=== PATIENT | female | born 1985 | race American Indian/Alaskan Native ===

== ENCOUNTER 2017-02-16 18:22 | Emergency (ER) | payer OTHER, BC ==
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
[2017-02-17] MEDS ORDERED: MOTRIN PO ONE (01:36)
[2017-02-17] MEDS ORDERED: TYLENOL PO ONE (01:36)
[2017-02-17 02:25] VITALS: BP 149/99
== END 2017-02-17 02:25 | disposition home or self-care (01) ==
LOC: ED 18:22
DX: M54.5 Low back pain (principal); M25.512 Pain in left shoulder; V49.49XA Driver injured in collision with other motor vehicles in traffic accident, initial encounter; Y93.89 Activity, other specified; Y92.9 Unspecified place or not applicable; Y99.9 Unspecified external cause status
CPT/HCPCS: 72100

== ENCOUNTER 2018-02-16 07:49 | Outpatient (CLI) | payer BC ==
--- NOTE | 2018-02-16 10:17 | Nuclear Medicine Report ---
HEPATOBILIARY SCAN: History: Right upper quadrant pain. Findings: No recent comparison. Correlation is made with MR abdomen dated 11/19/[address] abdomen pelvis dated 11/17/17. Following the injection of the radionuclide, serial scanning was obtained over the right upper quadrant. Initial imaging of the liver demonstrates a relatively normal activity pattern. There is progressive concentration of the radionucleotide in the central biliary ducts, common bile duct and small bowel loops. No gallbladder activity is identified out to 90 minutes. IMPRESSION: Nonvisualization of the gallbladder on HIDA scan. Acute cholecystitis cannot be excluded. Please correlate with the patient's clinical presentation.
== END 2018-02-16 07:50 | disposition home or self-care (01) ==
LOC: NM 07:49
PROVIDERS: ATTEND Surgery
DX: R10.11 Right upper quadrant pain (principal); E66.9 Obesity, unspecified; I10 Essential (primary) hypertension
CPT/HCPCS: 78226; A9537

== ENCOUNTER 2018-03-24 11:38 | Day surgery (SDC) | payer BC ==
[~2018-03-24 11:38] MED LIST: ANCEF/STERILE WATER 2 GM/20 ML IV NR; MARCAINE 0.25% INFILTRATI ONE
[2018-03-24] MEDS ORDERED: ZOFRAN IV PRN (12:11)
[2018-03-24] MEDS ORDERED: TORADOL IV PRN (12:11)
[2018-03-24] MEDS ORDERED: DEMEROL IV PRN (12:11)
[2018-03-24] MEDS ORDERED: MARCAINE-EPI 0.25%-1:200,000 INFILTRATI ONE (12:30)
[2018-03-24] MEDS ORDERED: NACL 0.9% 250ML 250 ML ONE (12:30)
[2018-03-24] MEDS ORDERED: VERSED IV NR (13:00)
[2018-03-24] MEDS ORDERED: LACTATED RINGERS 1,000 ML IV SCH ×2 (13:00→14:00)
--- NOTE | 2018-03-24 13:19 | Anesthesia Consultation ---
Anesthesia Consult and Med Hx Date of service: 03/24/18 - Airway Anesthetic Teeth Evaluation: Good ROM Head & Neck: Adequate Mental/Hyoid Distance: Adequate Mallampati Class: Class II Intubation Access Assessment: Probably Good - Pulmonary Exam CTA: Yes - Cardiac Exam Cardiac Exam: RRR - Pre-Operative Health Status ASA Pre-Surgery Classification: ASA2 Proposed Anesthetic Plan: General - Cardiovascular System Hx Hypertension: Yes (2 YEARS) - Central Nervous System Hx Psychiatric Problems: No - Other Systems Hx Alcohol Use: No Hx Substance Use: No Hx Cancer: No Hx Obesity: Yes
--- NOTE | 2018-03-24 13:19 | Anesthesia Day of Surgery ---
Anesthesia Day of Surgery - Day of Surgery Patient Examined: Yes Patient H&P Reviewed: Yes Patient is NPO: Yes
[2018-03-24] MEDS ORDERED: SUBLIMAZE ONE (14:14)
[2018-03-24] MEDS ORDERED: DIPRIVAN 10 MG/ML IV ONE (14:14)
[2018-03-24] MEDS ORDERED: DECADRON ONE (14:32)
[2018-03-24] MEDS ORDERED: XYLOCAINE MPF 2% ONE (14:32)
[2018-03-24] MEDS ORDERED: ZEMURON IV ONE (14:33)
[2018-03-24] MEDS ORDERED: ZOFRAN ONE (14:39)
[2018-03-24] MEDS ORDERED: OMNIPAQUE 300 MG/50 ML (CATH LAB) IV ONE (14:55)
[2018-03-24] MEDS ORDERED: MARCAINE 0.25% INFILTRATI ONE (15:13)
--- NOTE | 2018-03-24 15:16 | Operative Report ---
Operative Report Operative Report: Date of procedure: 03/24/2018 Pre-operative diagnosis: Biliary pancreatitis Post-operative diagnosis: Same Procedure name(s): Laparoscopic cholecystectomy Surgeon: Cheryl Salmeron MD Route Clerk: Samuel Grover M.D. Anesthesia: General EBL: Minimal Complications: None Instrument Count: correct Indications: This is a 32-year-old female with a history of abdominal pain found to have biliary pancreatitis she is offered the above-named procedures possible diagnostic and therapeutic modality. The risks and benefits discussed until all questions were answered. She was subsequently brought to the OR. Findings: Tapering of the proximal biliary tree. Questionable choledocholithiasis. Procedure: We reviewed the informed consent. We placed the patient supine upon the table. After adequate anesthesia was reached, the patient was prepped and draped in usual sterile fashion. A 5 mm incision was made the level of umbilicus and a Veress needle was placed at this position. The abdomen was then insufflated to 15 mmHg and a 5 mm trocar was placed through the umbilical incision. We inserted the camera at this time. Under direct vision and after infiltration of local anesthetic an 11 mm port was placed in the epigastric location. This was followed by placement of two five mm ports in the right upper quadrant. We identified the gallbladder and the fundus was grasped. This was retracted superiorly. We then grasped the infundibulum and retracted it laterally. At this time we dissected free the cystic duct infundibular junction until the triangle of Calot was clearly identified. Placed 2 clips distally on the cystic duct. And partially transected the duct at this point a 5 Macedonian pediatric catheter was in place with the lumen of the proximal portion of the cystic duct. Under fluoroscopic guidance injected radiopaque dye within the lumen and we were clearly able to see the biliary tree. The findings of which are noted above. We then placed 3 clips proximally the cystic duct and completely transected it. We placed 2 clips proximally on the cystic artery. We transected the cystic artery using electrocautery. We then dissected the gallbladder free from its fossa using electrocautery. This was placed in Endo Catch bag and removed the abdomen to be sent to pathology for further evaluation. We assured hemostasis at this time. We then evacuated the insufflation. We removed all ports and closed all port sites using a 4-0 Monocryl in a subcuticular fashion. The wounds were bandaged sterilely. The patient tolerated procedure well. They were taken to PACU in no apparent distress after extubation.
--- NOTE | 2018-03-24 15:18 | Short Stay Summary ---
Short Stay Documentation Date of service: 03/24/18 - History H&P: obtained from office - Allergies and Medications Current Medications: Allergies No Known Allergies Allergy (Verified 03/17/18 12:40) Home Medications Medication Instructions Recorded Confirmed Last Taken Type Losartan/Hydrochlorothiazide 1 tab PO DAILY 03/17/18 03/17/18 Unknown History [Losartan-Hctz 50-12.5 mg Tab] Norgestrel-Ethinyl Estradiol 1 each PO DAILY 03/17/18 03/17/18 Unknown History [Qhp-Kycxeeib-33 Tablet] Active Medications Cefazolin Sodium (Ancef/Sterile Water 2 Gm/20 Ml) 2 gm IV PREOP NR Stop: 03/24/18 23:59 Hydromorphone HCl (Dilaudid) 0.5 mg IV Q10MIN PRN PRN Reason: Pain , Severe (7-10) Stop: 03/24/18 20:00 Lactated Ringer's (Lactated Ringers) 1,000 mls @ 100 mls/hr IV DIRECT YUNIER Last Admin: 03/24/18 13:19 Dose: 100 mls/hr Ketorolac Tromethamine (Toradol) 30 mg IV ONCE PRN PRN Reason: Pain, Moderate (4-6) Stop: 03/24/18 20:00 Meperidine HCl (Demerol) 25 mg IV ONCE PRN PRN Reason: Shivering Stop: 03/24/18 20:00 Midazolam HCl (Versed) 2 mg IV PREOP NR Stop: 03/24/18 23:59 Last Admin: 03/24/18 13:21 Dose: 2 mg Ondansetron HCl (Zofran) 4 mg IV ONCE PRN PRN Reason: Nausea And Vomiting Stop: 03/24/18 20:00 - Brief post op/procedure progress note Pre-op diagnosis: see op note Procedure: See op note Anesthesia: GETA - Disposition Condition at discharge: Stable Disposition: DC-01 TO HOME OR SELFCARE Short Stay Discharge Plan Activity: advance as tolerated Diet: low fat Follow up with: LEVI MARIE MD [Primary Care Provider] - 7 Days THANIA LEYVA MD [Staff Physician] - 7 Days Prescriptions: Ondansetron [Zofran TAB] 4 mg PO Q8HR PRN #20 tablet PRN Reason: Nausea oxyCODONE /ACETAMINOPHEN [Percocet 5/325] 1 tab PO Q6HR PRN #30 tablet PRN Reason: Pain
[2018-03-24] MEDS ORDERED: NEO SYNEPHRINE ONE (15:26)
[2018-03-24] MEDS ORDERED: ROBINUL ONE (15:26)
[2018-03-24] MEDS: DILAUDID IV PRN ×3 (15:45→16:10)
--- NOTE | 2018-03-24 17:05 | Post Anesthesia Evaluation ---
- Post Anesthesia Evaluation Patient Participated: Yes Airway Patent: Yes Stable Respiratory Function: Yes Nausea/Vomiting: Yes (mild, resolved with IV antiemetics) Temp > 96.8F: Yes Pain Manageable: Yes Adequeate Hydration: Yes Anesthesia Complications: No
[2018-03-24 20:59] VITALS: BP 112/46
--- NOTE | 2018-03-25 08:07 | Fluoroscopy Report ---
FLUOROSCOPY CHOLANGIOGRAM OPERATIVE History: Pancreatitis without necrosis Findings: Fluoroscopy was provided radiology during intraoperative cholangiogram by the surgeon. 3 fluoroscopic images were captured which demonstrates contrast agent within the common bile duct in the descending duodenum. No filling defect consistent with choledocholithiasis is identified. Cholecystectomy changes are noted. Please correlate with the procedural report as needed.
== END 2018-03-24 17:50 | disposition home or self-care (01) ==
LOC: OR 11:38
PROVIDERS: ATTEND Surgery
DX: K81.9 Cholecystitis, unspecified (principal); K85.10 Biliary acute pancreatitis without necrosis or infection; I10 Essential (primary) hypertension; E66.9 Obesity, unspecified; Z68.41 Body mass index [BMI] 40.0-44.9, adult; Z79.899 Other long term (current) drug therapy; Z98.891 History of uterine scar from previous surgery; Z98.890 Other specified postprocedural states; Z80.1 Family history of malignant neoplasm of trachea, bronchus and lung
CPT/HCPCS: 47562; 74300; 81025; 88304; J0690; J1100; J1170; J1885; J2250; J2370; J2405; J2704; J3010; J7050; J7120; Q9967

== ENCOUNTER 2019-11-17 08:50 | Inpatient (IN) | payer BC ==
[2019-11-17 09:32] LABS: Hematocrit 20.8 % (30.3-42.9); Hemoglobin 6.9 gm/dl (10.1-14.3); Mean Corpuscular HGB Conc 33 % (30-34); Mean Corpuscular Volume 101 fl (79-97); Platelet Count 429 K/mm3 (140-440); Red Blood Count 2.06 M/mm3 (3.65-5.03)
[2019-11-17 09:36] LABS: Red Cell Distribution Width 28.6 % (13.2-15.2)
[2019-11-17] MEDS ORDERED: SODIUM CHLORIDE 0.9% 1000 ML 1,000 ML IV ONE (09:49)
[2019-11-17] MEDS ORDERED: CEFEPIME/NS 1 GM/100 ML 1 GM/100 ML BAG IV ONE (09:49)
[2019-11-17] MEDS ORDERED: SODIUM CHLORIDE 0.9% 500 ML 500 ML IV ONE (09:50)
[2019-11-17 09:55] LABS: Alanine Aminotransferase 328 units/L (7-56); BUN/Creatinine Ratio 23; Blood Urea Nitrogen 16 mg/dL (7-17); Calcium 9.3 mg/dL (8.4-10.2); Hemolysis Index 0
[2019-11-17] MEDS ORDERED: MORPHINE 2 MG/1 ML INJ IV ONE ×2 (09:57)
[2019-11-17] MEDS ORDERED: PANTOPRAZOLE 40 MG INJ IV ONE ×2 (09:57→09:58)
[2019-11-17] MEDS ORDERED: ONDANSETRON 4 MG/2 ML INJ IV ONE ×2 (09:57)
--- NOTE | 2019-11-17 10:11 | XRay Report ---
CHEST 1 VIEW 11/17/2019 9:47 AM INDICATION / CLINICAL INFORMATION: Difficulty breathing. COMPARISON: 2 views of the chest from 09/06/2019. FINDINGS: SUPPORT DEVICES: None. HEART / MEDIASTINUM: No significant abnormality. LUNGS / PLEURA: The lungs are clear with reduced volumes. No significant pleural effusion. No pneumot horax. ADDITIONAL FINDINGS: No significant additional findings. IMPRESSION: 1. No acute abnormality of the chest. Signer Name: Alberto Altamirano MD Signed: 11/17/2019 10:07 AM Workstation Name: [email or web address]
[2019-11-17 10:44] LABS: Partial Thromboplastin Time 20.1 Sec. (24.2-36.6)
[2019-11-17] MEDS ORDERED: MAGNESIUM SULFATE 2 GM/50 ML BAG IV ONE ×2 (10:47→13:00)
[2019-11-17] MEDS ORDERED: POTASSIUM CHLORIDE ER 20 MEQ TAB PO ONE (10:47)
--- NOTE | 2019-11-17 10:49 | Emergency Department Report ---
ED Abdominal Pain HPI - General Chief Complaint: Abdominal Pain Stated Complaint: ABD PAIN Time Seen by Provider: 11/17/19 09:43 Source: patient Mode of arrival: Wheelchair Limitations: No Limitations - History of Present Illness Initial Comments: This is a 34-year-old female who was due to have an MRI of the abdomen without contrast as an outpatient today. Instead she decided to check into the emergency department. She tells me that she has been feeling very weak and fatigued for the last 3 to 4 days. She complains of discomfort in the right upper quadrant of her abdomen. She denies fever or chills. She has had nausea and vomiting. She is unable to tolerate p.o. She denies any signs of melena or hematemesis. She states that she has had a prior transfusion but no history of GI bleeding. She is a poor historian but states that she has a stent which I think is a biliary stent. She has been admitted to this hospital and the [facility] system several times. Review of her previous medical record is indicative of sphincterotomy for biliary obstruction here in August. It does not look like she had a stent when she was discharged. I think that that was subsequently placed at another facility. The patient was seen by her GI doctor in the their office just a few days ago. Last Discharge Summary 09/15 Hospitalization Condition: Stable Hospital course: Patient is a 32-year-old AA woman with a history of hypertension, c holecystectomy, after she had presented in 2018 for symptomatic cholecystitis and pancreatitis who presented to [facility] ED with abdominal pains. In ED she was found to have acute pancreatitis with liver lesions and intrahepatic biliary dilatation. MRCP: IMPRESSION: Prominent common bile duct although no obstructing lesion is seen. This probably represents normal post cholecystectomy dilatation. M oderate to severe acute pancreatitis is suspected with increasing ascites and new bilateral pleural effusions. s/p ERCP yesterday (09/07/19) that showed: 1. Normal external ampulla 2. Clips in RUQ 3. PD cannulated with 0.025 guidewire/fusiontome precut sphincterotomy 4. 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- sphincterotomy extended to medium size- cholangiogram showed no stones or mass Discharge Diagnoses: Recurrent acute pancreatitis: treated with bowel rest, pain medication and IVFs Acute hypoxic respiratory failure, poa on 4 Liters on O2 due to bilateral pleural effusion; stop IVF and treat with IV lasix Bilateral Pleural Effusion from pancreatitis most likely: stopped IVFs and given lasix SIRS with organ dysfunction secondary to acute pancreatitis Choledocholithaisis s/p ERCP with sphincterotomy Acute abdominal ascites Morbid obesity, bmi 43.4: 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 full code DVT ppx Disposition: DC-[id number] TO HOME OR SELFCARE Time spent for discharge: 35 minutes 09/15 GI consult Assessment and Plan (1) Acute pancreatitis Current Visit: No Status: Acute Plan to address problem: -afebrile -WBC 15.3 -H/H WNL -acute hepatitis panel negative -lipase and LFTs trending down -triglyceride level WNL -abd CT-acute pancreatitis and liver hemagiomas -abd U/S-extrahepatic common duct dilated, along with pancreatitis and liver hemangiomas -MRCP-prominent CBD but no obstructing lesion (s/p CCY), moderate to severe acute pancreatitis, and liver hemangiomas unchanged -etiology-Recurrent acute pancreatitis with elevated LFTs argue for ampullary stenosis/sphincter of Oddi dysfunction. -s/p ERCP yesterday (09/07/19) that showed: 1. Normal external ampulla 2. Clips in RUQ 3. PD cannulated with 0.025 guidewire/fusiontome - precut sphincterotomy 4. 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 No N/V. Tolerating liquids. -advance diet -avoid NSAIDs x 3 days -continue PPI -continue supportive care -patient okay to be to d/c per GI standpoint with f/u in clinic in ~2 weeks -will sign off, please call if needed MD Complaint: abdominal pain -: Gradual, days(s) Location: RUQ Radiation: back (Some back pain) Migration to: no migration Severity scale (0 -10): 8 Quality: aching Consistency: intermittent Improves With: nothing Worsens With: nothing Context: other (GI history as above) Associated Symptoms: nausea, vomiting. denies: diarrhea, fever Treatments Prior to Arrival: other - Related Data Home Medications Medication Instructions Recorded Confirmed Last Taken Norgestrel-Ethinyl Estradiol 1 each PO DAILY 03/17/18 09/03/19 Unknown [[id number] Tablet] Previous Rx's Medication Instructions Recorded Last Taken Type Acetaminophen [Acetaminophen TAB] 325 mg PO Q4H PRN #15 tablet 09/08/19 Unknown Rx Losartan [Cozaar] 50 mg PO QDAY #30 tablet 09/08/19 Unknown Rx Pantoprazole [Protonix TAB] 40 mg PO QDAY #30 tablet 09/08/19 Unknown Rx oxyCODONE /ACETAMINOPHEN [Percocet 1 tab PO Q6HR PRN #30 tablet 09/08/19 Unknown Rx 5/325 mg] Allergies Allergy/AdvReac Type Severity Reaction Status Date / Time No Known Allergies Allergy Verified 03/17/18 12:40 ED Review of Systems ROS: Stated complaint: ABD PAIN Other details as noted in HPI Constitutional: denies: chills, fever Eyes: denies: eye pain, vision change ENT: denies: ear pain, throat pain Respiratory: denies: cough, shortness of breath Cardiovascular: denies: chest pain, palpitations Endocrine: no symptoms reported Gastrointestinal: abdominal pain, nausea, vomiting. denies: diarrhea Genitourinary: denies: urgency, dysuria, discharge Musculoskeletal: back pain (Occasional). denies: joint swelling, arthralgia Skin: denies: rash, lesions Neurological: denies: headache, weakness Psychiatric: denies: anxiety, depression Hematological/Lymphatic: denies: easy bleeding, easy bruising ED Past Medical Hx - Past Medical History Previous Medical History?: Yes Hx Hypertension: Yes (2 YEARS) Hx Heart Attack/AMI: No Hx Diabetes: Yes Hx Liver Disease: Yes (transaminitis, acute pancreatitis) Hx Renal Disease: No Hx Sickle Cell Disease: No Hx Seizures: No Hx Asthma: No Hx COPD: No Hx HIV: No Additional medical history: Anemia - Surgical History Past Surgical History?: Yes Hx Pacemaker: No Hx Internal Defibrillator: No Hx Cholecystectomy: Yes Additional Surgical History: c section x1. ERCP - Social History Smoking Status: Never Smoker Substance Use Type: None - Medications Home Medications: Home Medications Medication Instructions Recorded Confirmed Last Taken Type Norgestrel-Ethinyl Estradiol 1 each PO DAILY 03/17/18 09/03/19 Unknown History [[id number]-[id number]-28 Tablet] Acetaminophen [Acetaminophen TAB] 325 mg PO Q4H PRN #15 tablet 09/08/19 Unknown Rx Losartan [Cozaar] 50 mg PO QDAY #30 tablet 09/08/19 Unknown Rx Pantoprazole [Protonix TAB] 40 mg PO QDAY #30 tablet 09/08/19 Unknown Rx oxyCODONE /ACETAMINOPHEN [Percocet 1 tab PO Q6HR PRN #30 tablet 09/08/19 Unknown Rx 5/325 mg] ED Physical Exam - General Limitations: No Limitations General appearance: alert, in no apparent distress - Head Head exam: Present: atraumatic, normocephalic - Eye Eye exam: Present: normal appearance. Absent: scleral icterus - ENT ENT exam: Present: mucous membranes moist - Neck Neck exam: Present: normal inspection - Respiratory Respiratory exam: Present: normal lung sounds bilaterally. Absent: respiratory distress - Cardiovascular Cardiovascular Exam: Present: regular rate, normal rhythm. Absent: systolic murmur, diastolic murmur, rubs, gallop - GI/Abdominal GI/Abdominal exam: Present: soft, distended (Mildly), tenderness (Right upper quadrant), normal bowel sounds. Absent: guarding, rebound, rigid, organomegaly, mass, bruit, pulsatile mass, hernia - Extremities Exam Extremities exam: Present: normal inspection - Back Exam Back exam: Present: normal inspection - Neurological Exam Neurological exam: Present: alert, oriented X3, CN II-XII intact. Absent: motor sensory deficit - Psychiatric Psychiatric exam: Present: normal affect, normal mood - Skin Skin exam: Present: warm, dry, intact, normal color. Absent: rash ED Course Vital Signs 11/17/19 11/17/19 11/17/19 08:58 09:33 09:46 Temperature 99.2 F 99.9 F H Pulse Rate 130 H 114 H 105 H Respiratory 20 18 14 Rate Blood Pressure 125/64 115/50 Blood Pressure 126/82 [Right] O2 Sat by Pulse 100 100 100 Oximetry 11/17/19 11/17/19 11/17/19 09:59 10:00 10:19 Temperature Pulse Rate 106 H Respiratory 18 17 18 Rate Blood Pressure 120/59 Blood Pressure [Right] O2 Sat by Pulse 100 Oximetry 11/17/19 11/17/19 10:30 11:16 Temperature Pulse Rate 95 H 90 Respiratory 15 15 Rate Blood Pressure 106/46 111/57 Blood Pressure [Right] O2 Sat by Pulse 98 100 Oximetry - Reevaluation(s) Reevaluation #1: Patient given cefepime, fluids, unit of blood. Spoke to GI who are consulted. Recommended proceed with CT examination and they will see. Discussed with hospitalist and admit to their service. 11/17/19 11:24 ED Medical Decision Making - Lab Data Result diagrams: 11/17/19 09:12 11/17/19 09:12 Laboratory Results - last 24 hr 11/17/19 11/17/19 11/17/19 09:12 09:12 09:12 WBC 10.6 RBC 2.06 L Hgb 6.9 L Hct 20.8 L MCV 101 H MCH 34 H MCHC 33 RDW 28.6 H Plt Count 429 PT INR APTT Sodium 140 Potassium 3.1 L Chloride 97.8 L Carbon Dioxide 20 L Anion Gap 25 BUN 16 Creatinine 0.7 Estimated GFR > 60 BUN/Creatinine Ratio 23 Glucose 205 H Lactic Acid Calcium 9.3 Magnesium Total Bilirubin 7.10 H AST 202 H ALT 328 H Alkaline Phosphatase 215 H Ammonia Troponin T NT-Pro-B Natriuret Pep Total Protein 7.8 Albumin 4.0 Albumin/Globulin Ratio 1.1 Lipase 19 HCG, Qual Negative 11/17/19 11/17/19 11/17/19 09:45 09:45 09:45 WBC RBC Hgb Hct MCV MCH MCHC RDW Plt Count PT 13.3 INR 1.00 APTT 20.1 L Sodium Potassium Chloride Carbon Dioxide Anion Gap BUN Creatinine Estimated GFR BUN/Creatinine Ratio Glucose Lactic Acid Calcium Magnesium 1.10 L Total Bilirubin AST ALT Alkaline Phosphatase Ammonia 14.0 L Troponin T < 0.010 NT-Pro-B Natriuret Pep 64.99 Total Protein Albumin Albumin/Globulin Ratio Lipase HCG, Qual 11/17/19 09:48 WBC RBC Hgb Hct MCV MCH MCHC RDW Plt Count PT INR APTT Sodium Potassium Chloride Carbon Dioxide Anion Gap BUN Creatinine Estimated GFR BUN/Creatinine Ratio Glucose Lactic Acid 1.80 Calcium Magnesium Total Bilirubin AST ALT Alkaline Phosphatase Ammonia Troponin T NT-Pro-B Natriuret Pep Total Protein Albumin Albumin/Globulin Ratio Lipase HCG, Qual - EKG Data -: EKG Interpreted by Sd EKG shows normal: sinus rhythm Rate: tachycardia - EKG Data Interpretation: nonspecific ST-T wave elida - Radiology Data Radiology results: pending (CT is pending), report reviewed (Chest x-ray no acute process) Critical care attestation.: If time is entered above; I have spent that time in minutes in the direct care of this critically ill patient, excluding procedure time. ED Disposition Clinical Impression: Biliary obstruction, Right upper quadrant pain Anemia Qualifiers: Anemia type: unspecified type Qualified Code(s): D64.9 - Anemia, unspecified Disposition: OP ADMIT IP TO THIS HOSP Is pt being admited?: Yes Does the pt Need Aspirin: No Condition: Stable Instructions: Abdominal Pain (ED) Referrals: PRIMARY CARE, [Primary Care Provider] - 3-5 Days Time of Disposition: 11:26
[2019-11-17 11:07] LABS: Creatine Kinase MB < 1.0 ng/mL (0.0-4.0)
[2019-11-17 11:54] LABS: Bacteria,Urine 1+ /HPF (Negative); Bilirubin,Urine SM (Negative); Blood,Urine NEG (Negative); Color,Urine Amber (Yellow); Mucus,Urine 2+ /HPF
[2019-11-17 12:15] LABS: Ictotest,Urine Negative (Negative)
--- NOTE | 2019-11-17 13:46 | History and Physical Report ---
History of Present Illness Date of examination: 11/17/19 Date of admission: 11/17/19 11:28 Chief complaint: Abdominal pain gen weakness, fatigue shortness of breath Dizziness History of present illness: Patient is 34-year-old with history of autoimmune hepatitis, primary sclerosing cholangitis. She has a complicated medical history, follows with GI Physician. . She was scheduled for MRI Abdomen today to evaluate abdominal stent. However she presents to ED with abdominal pain, generalized weakness,fatigue,dizziness for few days. Abdominal pain is right upper quadrant 8/10, with no radiation. She denies fever or chills. She denies blood in stools, no dark stools. Review of her previous medical record is indicative of sphincterotomy for biliary obstruction here in August. She is poor historian cannot gicve details, but did say she saw GI Physician few days ago. She was seen and evaluated in ED. She has jaundice. Labs show Total bilirubin 7.1 , anemia with hemoglobin 6.9. Will admit. Past History Past Medical History: other (autoimmune hepatitis, primary sclerosing cholangitis, necrotising pancreatitis) Past Surgical History: cholecystectomy, Other (Biliary stent, cysto-gastrostomy stent) Social history: full code. denies: smoking, alcohol abuse Family history: hypertension, other (Crohns) Medications and Allergies Allergies Allergy/AdvReac Type Severity Reaction Status Date / Time No Known Allergies Allergy Verified 03/17/18 12:40 Home Medications Medication Instructions Recorded Confirmed Last Taken Type Norgestrel-Ethinyl Estradiol 1 each PO DAILY 03/17/18 11/17/19 11/15/19 History [Yqa-[id number]-44 Tablet] Losartan [Cozaar] 50 mg PO QDAY #30 tablet 09/08/19 11/18/19 11/16/19 10:00 Rx Pantoprazole [Protonix TAB] 40 mg PO QDAY #30 tablet 09/08/19 11/17/19 11/17/19 Rx Budesonide [Budesonide EC] 3 mg PO QAM 11/17/19 11/18/19 11/16/19 10:00 History 3 mg Insulin Lispro [Humalog Kwikpen 10 unit SQ HS 11/17/19 11/17/19 11/16/19 History U-100] metFORMIN [Glucophage] 500 mg PO BID 11/17/19 11/17/1920 History ursodioL [Ursodiol] 500 mg PO BID 11/17/19 11/17/19 11/16/19 History Active Meds: Active Medications Magnesium Sulfate (Magnesium Sulfate 2gm/50ml) 2 gm in 50 mls @ 25 mls/hr IV ONCE ONE Stop: 11/17/19 14:59 Potassium Chloride/Dextrose/Sod Cl (D5w/0.45% Nacl/Kcl 20 Meq) 20 meq in 1,000 mls @ 75 mls/hr IV DIRECT YUNIER Morphine Sulfate (Morphine) 2 mg IV Q3H PRN PRN Reason: Pain, Moderate (4-6) Review of Systems All systems: negative (No fever, no headache, no chest pain. All other systems reviewed and are negative.) Exam - Physical Exam Narrative exam: GEN: Not in acute distress, Obese, lying in bed HEENT: Normocephalic, atraumatic, Neck: supple, No JVD Lungs: Clear to auscultation bilaterally, heart;S1 and S2 reg, no murmurs, rubs or gallop Abd:soft, tender RUQ,, non distended, normal bowel sounds, Ext: No edema, no clubbing, no cyanosis, Neuro: Awake,alert,oriented X3 , no focal signs, - Constitutional Vitals: Temp Pulse Resp BP Pulse Ox 99.9 F H 93 H 12 111/57 100 11/17/19 09:33 11/17/19 11:46 11/17/19 11:46 11/17/19 11:46 11/17/19 11:16 HEART Score - HEART Score Troponin: Troponin T < 0.010 ng/mL (0.00-0.029) 11/17/19 09:45 Results - Labs CBC & Chem 7: 11/18/19 04:56 11/18/19 04:56 Labs: Abnormal lab results 11/17/19 11/17/19 11/17/19 Range/Units 09:12 09:12 09:45 RBC 2.06 L (3.65-5.03) M/mm3 Hgb 6.9 L (10.1-14.3) gm/dl Hct 20.8 L (30.3-42.9) % MCV 101 H (79-97) fl MCH 34 H (28-32) pg RDW 28.6 H (13.2-15.2) % APTT 20.1 L (24.2-36.6) Sec. Potassium 3.1 L (3.6-5.0) mmol/L Chloride 97.8 L (98-107) mmol/L Carbon Dioxide 20 L (22-30) mmol/L Glucose 205 H (65-100) mg/dL Magnesium (1.7-2.3) mg/dL Total Bilirubin 7.10 H (0.1-1.2) mg/dL AST 202 H (5-40) units/L ALT 328 H (7-56) units/L Alkaline Phosphatase 215 H (35-129) units/L Ammonia (25-60) umol/L Total Creatine Kinase (30-135) units/L Urine WBC (Auto) (0.0-6.0) /HPF Crossmatch 11/17/19 11/17/19 11/17/19 Range/Units 09:45 09:45 09:45 RBC (3.65-5.03) M/mm3 Hgb (10.1-14.3) gm/dl Hct (30.3-42.9) % MCV (79-97) fl MCH (28-32) pg RDW (13.2-15.2) % APTT (24.2-36.6) Sec. Potassium (3.6-5.0) mmol/L Chloride (98-107) mmol/L Carbon Dioxide (22-30) mmol/L Glucose (65-100) mg/dL Magnesium 1.10 L (1.7-2.3) mg/dL Total Bilirubin (0.1-1.2) mg/dL AST (5-40) units/L ALT (7-56) units/L Alkaline Phosphatase (35-129) units/L Ammonia 14.0 L (25-60) umol/L Total Creatine Kinase 28 L (30-135) units/L Urine WBC (Auto) (0.0-6.0) /HPF Crossmatch See Detail 11/17/19 Range/Units Unknown RBC (3.65-5.03) M/mm3 Hgb (10.1-14.3) gm/dl Hct (30.3-42.9) % MCV (79-97) fl MCH (28-32) pg RDW (13.2-15.2) % APTT (24.2-36.6) Sec. Potassium (3.6-5.0) mmol/L Chloride (98-107) mmol/L Carbon Dioxide (22-30) mmol/L Glucose (65-100) mg/dL Magnesium (1.7-2.3) mg/dL Total Bilirubin (0.1-1.2) mg/dL AST (5-40) units/L ALT (7-56) units/L Alkaline Phosphatase (35-129) units/L Ammonia (25-60) umol/L Total Creatine Kinase (30-135) units/L Urine WBC (Auto) 68.0 H (0.0-6.0) /HPF Crossmatch Assessment and Plan Jaundice admit to medical floor GI consulted Anemia Hgb 6.9 Transfuse 1 unit PRBC and repeat in am get stool occult blood History of biliary stent in situ Follows with GI Hyperbilirubinemia GI to see Low grade fever 99.9 Started on cefepime in ED Cont Cefepime consult ID Autoimmune hepatitis Follows as outpatient
[2019-11-17 13:47] LABS: Basophils % (Manual) 0 % (0.0-1.8); Eosinophils % (Manual) 0 % (0.0-4.3); Total Cells Counted 100
[2019-11-17 13:48] LABS: Anisocytosis 1+
[2019-11-17 13:49] LABS: Platelet Estimate Consistent w Auto; Stomatocytes Few
[2019-11-17] MEDS: MORPHINE 2 MG/1 ML INJ IV PRN ×2 (15:13→19:53)
[2019-11-17] MEDS ORDERED: MORPHINE 4 MG/1 ML INJ IV PRN (16:09)
[2019-11-17] MEDS ORDERED: ACETAMINOPHEN 325 MG TAB PO PRN (16:09)
[2019-11-17] MEDS: D5W/0.45% NACL/KCL 20 MEQ 20 MEQ/1,000 ML BAG IV SCH (16:59)
[2019-11-17] MEDS: CEFEPIME/NS 1 GM/100 ML 1 GM/100 ML BAG IV SCH (17:25)
--- NOTE | 2019-11-17 18:25 | Consultation ---
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 She presented to the ER with these complaints, and was admitted with a hemoglobin of 6.9. She has mild upper abdominal pain in her right upper quadrant and epigastrium which is not new, and is better than before. She denies nausea or vomiting. She does complain of dyspnea on exertion, but no chest pain. Bowel movements occur once or twice a week without any change. There is been no magalis GI bleeding. She denies fevers chills or sweats. Patient has a complicated history. She is status post cholecystectomy in 2017 with recurrent pancreatitis. She underwent an ERCP on September 07, 2019 with sphincterotomy. 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 She developed biliary obstruction as a result of these pseudocysts. She was referred to Dr. Joseluis Nuno, at [facility], and underwent several procedures including metal biliary stent placement in August along with to [employer] cyst gastrostomy s tents and debridement of necrosis endoscopically. On October 17, the biliary stent was removed with the note that the biliary stricture appeared improved. The 2 cystogastrostomy stents were left in place. In the interim, she has also been diagnosed with primary sclerosing cholangitis by liver biopsy by Dr. Gunner Mejia. She has been started on budesonide. She was most recently seen in the office on November [address] Pina, and on that day, had a hemoglobin of 6.7. Her liver enzymes were elevated with an AST of 173 ALT 246 LP 204 and total bilirubin of 6.2. She was to have undergone an MRI and then was to follow-up with Dr. Nuno if the pseudocysts had resolved, to remove the endoluminal stents. Meds reviewed. Past History Past Medical History: anemia, diabetes, hypertension, other (Primary sclerosing cholangitis, necrotizing pancreatitis) Past Surgical History: cholecystectomy Social history: denies: smoking, alcohol abuse Family history: other (Mother - Crohn's disease) Medications and Allergies Allergies Allergy/AdvReac Type Severity Reaction Status Date / Time No Known Allergies Allergy Verified 03/17/18 12:40 Home Medications Medication Instructions Recorded Confirmed Last Taken Type Norgestrel-Ethinyl Estradiol 1 each PO DAILY 03/17/18 11/17/19 11/15/19 History [[id number]-[id number]-11 Tablet] Losartan [Cozaar] 50 mg PO QDAY #30 tablet 09/08/19 11/16/19 Rx Pantoprazole [Protonix TAB] 40 mg PO QDAY #30 tablet 09/08/19 11/17/19 11/17/19 Rx Budesonide [Budesonide EC] 3 mg PO 11/17/19 11/16/19 History Insulin Lispro [Humalog Kwikpen 10 unit SQ HS 11/17/19 11/17/19 11/16/19 History U-100] metFORMIN [Glucophage] 500 mg PO BID 11/17/19 11/17/19 11/16/19 History ursodioL [Ursodiol] 500 mg PO BID 11/17/19 11/17/19 11/16/19 History Active Meds: Active Medications Acetaminophen (Tylenol) 650 mg PO Q4H PRN PRN Reason: Pain MILD(1-3)/Fever >100.5/BECKER Potassium Chloride/Dextrose/Sod Cl (D5w/0.45% Nacl/Kcl 20 Meq) 20 meq in 1,000 mls @ 75 mls/hr IV DIRECT YUNIER Last Admin: 11/17/19 16:59 Dose: 75 mls/hr Documented by: Cefepime HCl (Cefepime/Ns 1 Gm/100 Ml) 1 gm in 100 mls @ 200 mls/hr IV Q8H YUNIER; Protocol Last Admin: 11/17/19 17:25 Dose: 200 mls/hr Documented by: Morphine Sulfate (Morphine) 2 mg IV Q3H PRN PRN Reason: Pain, Moderate (4-6) Last Admin: 11/17/19 15:13 Dose: 2 mg Documented by: Morphine Sulfate (Morphine) 4 mg IV Q4H PRN PRN Reason: Pain , Severe (7-10) Ondansetron HCl (Zofran) 4 mg IV Q8H PRN PRN Reason: Nausea And Vomiting Sodium Chloride (Sodium Chloride Flush Syringe 10 Ml) 10 ml IV BID YUNIER Sodium Chloride (Sodium Chloride Flush Syringe 10 Ml) 10 ml IV PRN PRN PRN Reason: LINE FLUSH Review of Systems All systems: negative (as noted in HPI) Exam - Constitutional Vitals: Temp Pulse Resp BP Pulse Ox 98.6 F 93 H 18 113/54 99 11/17/19 16:45 11/17/19 16:45 11/17/19 16:45 11/17/19 17:32 11/17/19 16:45 General appearance: Present: no acute distress - EENT Eyes: Present: PERRL, EOM intact, scleral icterus ENT: hearing intact - Respiratory Respiratory effort: normal Respiratory: bilateral: CTA - Cardiovascular Rhythm: regular Heart Sounds: Present: S1 & S2 - Extremities Extremities: No edema - Abdominal General gastrointestinal: Present: soft, tender (mild upper abdominal) Results - Labs CBC & Chem 7: 11/17/19 09:12 11/17/19 09:12 Labs: Abnormal lab results 11/17/19 11/17/19 11/17/19 Range/Units 09:12 09:12 09:45 RBC 2.06 L (3.65-5.03) M/mm3 Hgb 6.9 L (10.1-14.3) gm/dl Hct 20.8 L (30.3-42.9) % MCV 101 H (79-97) fl MCH 34 H (28-32) pg RDW 28.6 H (13.2-15.2) % APTT 20.1 L (24.2-36.6) Sec. Potassium 3.1 L (3.6-5.0) mmol/L Chloride 97.8 L (98-107) mmol/L Carbon Dioxide 20 L (22-30) mmol/L Glucose 205 H (65-100) mg/dL Magnesium (1.7-2.3) mg/dL Total Bilirubin 7.10 H (0.1-1.2) mg/dL AST 202 H (5-40) units/L ALT 328 H (7-56) units/L Alkaline Phosphatase 215 H (35-129) units/L Ammonia (25-60) umol/L Total Creatine Kinase (30-135) units/L Urine WBC (Auto) (0.0-6.0) /HPF Crossmatch 11/17/19 11/17/19 11/17/19 Range/Units 09:45 09:45 09:45 RBC (3.65-5.03) M/mm3 Hgb (10.1-14.3) gm/dl Hct (30.3-42.9) % MCV (79-97) fl MCH (28-32) pg RDW (13.2-15.2) % APTT (24.2-36.6) Sec. Potassium (3.6-5.0) mmol/L Chloride (98-107) mmol/L Carbon Dioxide (22-30) mmol/L Glucose (65-100) mg/dL Magnesium 1.10 L (1.7-2.3) mg/dL Total Bilirubin (0.1-1.2) mg/dL AST (5-40) units/L ALT (7-56) units/L Alkaline Phosphatase (35-129) units/L Ammonia 14.0 L (25-60) umol/L Total Creatine Kinase 28 L (30-135) units/L Urine WBC (Auto) (0.0-6.0) /HPF Crossmatch See Detail 11/17/19 Range/Units Unknown RBC (3.65-5.03) M/mm3 Hgb (10.1-14.3) gm/dl Hct (30.3-42.9) % MCV (79-97) fl MCH (28-32) pg RDW (13.2-15.2) % APTT (24.2-36.6) Sec. Potassium (3.6-5.0) mmol/L Chloride (98-107) mmol/L Carbon Dioxide (22-30) mmol/L Glucose (65-100) mg/dL Magnesium (1.7-2.3) mg/dL Total Bilirubin (0.1-1.2) mg/dL AST (5-40) units/L ALT (7-56) units/L Alkaline Phosphatase (35-129) units/L Ammonia (25-60) umol/L Total Creatine Kinase (30-135) units/L Urine WBC (Auto) 68.0 H (0.0-6.0) /HPF Crossmatch Assessment and Plan 1. Anemia -multifactorial, and due to anemia of chronic disease. There is no evidence of active or ongoing blood loss. Hemoglobin is drifting down over the last month -Transfuse and recheck H&H -Check stool for occult blood. -Continue pantoprazole 2. Necrotizing pancreatitis with pseudocysts -clinically doing well. She has 2 cyst-gastrostomy stents. -Advance diet -Outpatient MRI and follow-up at [facility] with Dr. Nuno 3. Primary sclerosing cholangitis -continue budesonide. Continue outpatient monitoring with Dr. Mejia and Dr. Pina. Liver enzymes relatively stable. Once patient gets transfused to an appropriate hemoglobin level, she may be discharged to home from GI perspective and continue outpatient follow-up with Nurys Tucker, Roberto.
[2019-11-17] MEDS: ZOLPIDEM 5 MG TAB PO PRN (23:04)
[2019-11-18] MEDS: CEFEPIME/NS 1 GM/100 ML 1 GM/100 ML BAG IV SCH ×3 (01:53→17:33)
[2019-11-18 05:23] LABS: Mean Corpuscular HGB Conc 33 % (30-34); Mean Corpuscular Volume 104 fl (79-97); Platelet Count 301 K/mm3 (140-440); Red Blood Count 1.63 M/mm3 (3.65-5.03)
[2019-11-18 05:38] LABS: Alanine Aminotransferase 238 units/L (7-56); Albumin 3.2 g/dL (3.9-5); BUN/Creatinine Ratio 25; Blood Urea Nitrogen 10 mg/dL (7-17); Calcium 8.1 mg/dL (8.4-10.2); Hemolysis Index 0
[2019-11-18 05:45] LABS: Red Cell Distribution Width 29.6 % (13.2-15.2)
[2019-11-18 05:46] LABS: Hemoglobin 5.6 gm/dl (10.1-14.3)
[2019-11-18 06:45] LABS: Band Neutrophils # (Manual) 0.3 K/mm3; Basophils % (Manual) 0 % (0.0-1.8); Hypochromasia 3+; Macrocytosis 2+; Total Cells Counted 100
[2019-11-18 06:46] LABS: Anisocytosis 2+
[2019-11-18 06:47] LABS: Platelet Estimate Consistent w Auto
[2019-11-18] MEDS ORDERED: SODIUM CHLORIDE 0.9% 500 ML 500 ML IV NR (07:34)
[2019-11-18] MEDS: MORPHINE 2 MG/1 ML INJ IV PRN ×2 (12:25→21:58)
--- NOTE | 2019-11-18 14:54 | Progress Note ---
Assessment and Plan 1. Anemia -Hgb dropped to 5.6 today, with no magalis bleeding, and likely due to volume repletion. Multifactorial, and due to anemia of chronic disease. There is no evidence of active or ongoing blood loss. Hemoglobin is drifting down ove r the last month -Transfuse and recheck H&H -Check stool for occult blood. -Continue pantoprazole 2. Necrotizing pancreatitis with pseudocysts -clinically doing well. She has 2 cyst-gastrostomy stents. -Advance diet -Outpatient MRI and follow-up at [facility] with Dr. Nuno 3. Primary sclerosing cholangitis -continue budesonide. Continue outpatient monitoring with Dr. Mejia and Dr. Pina. Liver enzymes relatively stable. Once patient gets transfused to an appropriate hemoglobin level, she may be discharged to home from GI perspective and continue outpatient follow-up with Nurys Tucker, Roberto. Subjective Date of service: 11/18/19 Interval history: Pt denies change, no abd pain, N/V, GI bleed. Objective - Constitutional Vitals: Vital Signs - 12hr 11/18/19 11/18/19 11/18/19 02:59 05:25 08:05 Temperature 98.3 F Pulse Rate 104 H Respiratory 20 18 Rate Blood Pressure 118/69 O2 Sat by Pulse 97 88 Oximetry 11/18/19 11/18/19 08:10 11:51 Temperature 98.0 F Pulse Rate 108 H Respiratory 20 Rate Blood Pressure 206/133 126/69 O2 Sat by Pulse 91 99 Oximetry General appearance: Present: no acute distress - EENT Eyes: PERRL, EOM intact ENT: hearing intact - Respiratory Respiratory effort: normal - Gastrointestinal General gastrointestinal: Present: soft, tender (Mild RUQ) - Labs CBC & Chem 7: 11/18/19 04:56 11/18/19 04:56 Labs: Abnormal lab results 11/18/19 11/18/19 Range/Units 04:56 04:56 RBC 1.63 L (3.65-5.03) M/mm3 Hgb 5.6 L* (10.1-14.3) gm/dl Hct 17.0 L* (30.3-42.9) % MCV 104 H (79-97) fl MCH 34 H (28-32) pg RDW 29.6 H (13.2-15.2) % Monocytes % (Manual) 8.0 H (0.0-7.3) % Nucleated RBC % 2.0 H (0.0-0.9) % Potassium 3.4 L (3.6-5.0) mmol/L Creatinine 0.4 L (0.7-1.2) mg/dL Glucose 164 H (65-100) mg/dL Calcium 8.1 L (8.4-10.2) mg/dL Total Bilirubin 6.40 H (0.1-1.2) mg/dL AST 134 H (5-40) units/L ALT 238 H (7-56) units/L Alkaline Phosphatase 161 H (35-129) units/L Albumin 3.2 L (3.9-5) g/dL Medications & Allergies - Medications Allergies/Adverse Reactions: Allergies No Known Allergies Allergy (Verified 03/17/18 12:40) Home Medications: Home Medications Medication Instructions Recorded Confirmed Last Taken Type Norgestrel-Ethinyl Estradiol 1 each PO DAILY 03/17/18 11/17/19 11/15/19 History [[id number] Tablet] Losartan [Cozaar] 50 mg PO QDAY #30 tablet 09/08/19 11/18/19 11/16/19 10:00 Rx Pantoprazole [Protonix TAB] 40 mg PO QDAY #30 tablet 09/08/19 11/17/19 11/17/19 Rx Budesonide [Budesonide EC] 3 mg PO QAM 11/17/19 11/18/19 11/16/19 10:00 History 3 mg Insulin Lispro [Humalog Kwikpen 10 unit SQ HS 11/17/19 11/17/19 11/16/19 History U-100] metFORMIN [Glucophage] 500 mg PO BID 11/17/19 11/17/19 11/16/19 History ursodioL [Ursodiol] 500 mg PO BID 11/17/19 11/17/19 11/16/19 History Active Medications: Generic Name Dose Route Start Last Admin Trade Name Freq PRN Reason Stop Dose Admin Acetaminophen 650 mg 11/17/19 16:09 Tylenol PO Q4H PRN Pain MILD(1-3)/Fever >100.5/BECKER Potassium Chloride/Dextrose/Sod Cl 20 meq in 1,000 mls @ 75 mls/hr 11/17/19 14:00 11/17/19 16:59 D5w/0.45% Nacl/Kcl 20 Meq IV 75 mls/hr DIRECT YUNIER Administration Cefepime HCl 1 gm in 100 mls @ 200 mls/hr 11/17/19 18:00 11/18/19 09:03 Cefepime/Ns 1 Gm/100 Ml IV 200 mls/hr Q8H YUNIER Administration Protocol Morphine Sulfate 2 mg 11/17/19 12:42 11/18/19 12:25 Morphine IV 2 mg Q3H PRN Administration Pain, Moderate (4-6) Morphine Sulfate 4 mg 11/17/19 16:09 11/18/19 02:59 Morphine IV 4 mg Q4H PRN Administration Pain , Severe (7-10) Ondansetron HCl 4 mg 11/17/19 16:09 Zofran IV Q8H PRN Nausea And Vomiting Sodium Chloride 10 ml 11/17/19 22:00 11/18/19 09:04 Sodium Chloride Flush Syringe 10 Ml IV 10 ml BID YUNIER Administration Sodium Chloride 10 ml 11/17/19 16:09 Sodium Chloride Flush Syringe 10 Ml IV PRN PRN LINE FLUSH Zolpidem Tartrate 5 mg 11/17/19 22:32 11/17/19 23:04 Ambien PO 5 mg QHS PRN Administration Sleep HEART Score - HEART Score Troponin: Troponin T < 0.010 ng/mL (0.00-0.029) 11/17/19 09:45
--- NOTE | 2019-11-18 15:55 | Consultation ---
History of Present Illness - Reason for Consult Consult date: 11/18/19 low grade fever/biliary stent Requesting physician: NING HOLLEY - History of Present Illness 34 y/o female with obesity, complicated cholecystectomy in 2018 with recurrent pancreatitisunderwent an ERCP on September 07, 2019 with sphincterotomy, then she had severe pancreatitis complicated with necrotizing pancreatitis with large pseudocysts. She developed biliary obstruction as a result of these pseudocysts. She was seen by Dr. Joseluis Nuno, at [facility], and underwent several procedures including metal biliary stent placement in August along with to [employer] cyst gastrostomy stents and debridement of necrosis endoscopically. On October 17, the biliary stent was removed with the note that the biliary stricture appeared improved. The 2 cystogastrostomy stents were left in place. Also recently diagnosed with primary sclerosing cholangitis by liver biopsy by Dr. Gunner Mejia. She has been started on budesonide. She was due to have a repeat MRI but developed generalized weakness, lightheadedness and palpitations for 4 days associated with baseline epigastric abdominal pain. She denies nausea or vomiting. She does complain of dyspnea on exertion, but no chest pain. She denies fevers chills or sweats. No diarrhea. On arrival, temp 99.2, HR 130, R 20, O2 sat 100, BP 125/64. WBC 10.6. Hg 6.9. Blood cx negative. CXR neg. AST of 173 ALT 246 LP 204 and total bilirubin of 6.2. Review of Systems: positive in bold print General: fever, chills, malaise Cutaneous: rash, pruritus Head: headaches or injury Eyes: changes in vision, eye pain, double vision Ears: ear pain, ear discharge, ringing or hearing loss Nose: nose bleeding, stuffiness Mouth & throat: bleeding gums, horseness, no dental problems, or swollen glands Neck: no pain, node enlargement/lumps, tyroid enlargement or tenderness Respiratory: SOB, cough, BOUDREAUX, wheezing, sputum, hemoptysis, pleuritic chest pain Cardiovascular: chest pain, leg edema, cyanosis, BOUDREAUX, orthopnea Musculoskeletal edema Gastrointestinal: nausea, vomiting, hematemesis, diarrhea, constipation, melena, bright red blood in stools, fecal incontinence, jaundice Genitourinary/Reproductive: frequent urination, dysuria, hematuria, incontinence Neurogical: seizures, headaches, weakness, paresthesias, loss of speech or vision; memory loss, vertigo, tremors, numbness Psychiatric: stable mood; excessive anxiety, sadness or moodiness Past History Past Medical History: other (autoimmune hepatitis) Past Surgical History: Other (Biliary stent) Social history: full code. denies: smoking, alcohol abuse Family history: hypertension, other (Crohns) Medications and Allergies Allergies Allergy/AdvReac Type Severity Reaction Status Date / Time No Known Allergies Allergy Verified 03/17/18 12:40 Home Medications Medication Instructions Recorded Confirmed Last Taken Type Norgestrel-Ethinyl Estradiol 1 each PO DAILY 03/17/18 11/17/19 11/15/19 History [[id number]-[id number]-57 Tablet] Losartan [Cozaar] 50 mg PO QDAY #30 tablet 09/08/19 11/18/19 11/16/19 10:00 Rx Pantoprazole [Protonix TAB] 40 mg PO QDAY #30 tablet 09/08/19 11/17/19 11/17/19 Rx Budesonide [Budesonide EC] 3 mg PO QAM 11/17/19 11/18/19 11/16/19 10:00 History 3 mg Insulin Lispro [Humalog Kwikpen 10 unit SQ HS 11/17/19 11/17/19 11/16/19 History U-100] metFORMIN [Glucophage] 500 mg PO BID 11/17/19 11/17/19 11/16/19 History ursodioL [Ursodiol] 500 mg PO BID 11/17/19 11/17/19 11/16/19 History Active Meds: Active Medications Acetaminophen (Tylenol) 650 mg PO Q4H PRN PRN Reason: Pain MILD(1-3)/Fever >100.5/BECKER Potassium Chloride/Dextrose/Sod Cl (D5w/0.45% Nacl/Kcl 20 Meq) 20 meq in 1,000 mls @ 75 mls/hr IV DIRECT YUNIER Last Admin: 11/17/19 16:59 Dose: 75 mls/hr Documented by: Cefepime HCl (Cefepime/Ns 1 Gm/100 Ml) 1 gm in 100 mls @ 200 mls/hr IV Q8H YUNIER; Protocol Last Admin: 11/18/19 09:03 Dose: 200 mls/hr Documented by: Morphine Sulfate (Morphine) 2 mg IV Q3H PRN PRN Reason: Pain, Moderate (4-6) Last Admin: 11/18/19 12:25 Dose: 2 mg Documented by: Morphine Sulfate (Morphine) 4 mg IV Q4H PRN PRN Reason: Pain , Severe (7-10) Last Admin: 11/18/19 02:59 Dose: 4 mg Documented by: Ondansetron HCl (Zofran) 4 mg IV Q8H PRN PRN Reason: Nausea And Vomiting Sodium Chloride (Sodium Chloride Flush Syringe 10 Ml) 10 ml IV BID YUNIER Last Admin: 11/18/19 09:04 Dose: 10 ml Documented by: Sodium Chloride (Sodium Chloride Flush Syringe 10 Ml) 10 ml IV PRN PRN PRN Reason: LINE FLUSH Zolpidem Tartrate (Ambien) 5 mg PO QHS PRN PRN Reason: Sleep Last Admin: 11/17/19 23:04 Dose: 5 mg Documented by: Physical Examination - Physical Exam Narrative exam: General appearance: Alert in NAD morbidly obese Eyes: anicteric sclerae, moist conjunctivae; no lid-lag; PERRLA HENT: Atraumatic; oropharynx clear Lungs: CTA CV: RRR no murmur Abdomen: Soft, non-tender; obese Extremities: Left anterior tibial edema, heat and severe tenderness. Right thigh old scar. Skin: No rash. Psych: No agitated Neuro: alert and oriented x 3. Moving all extermities - Constitutional Vitals: Vital Signs Temp Pulse Resp BP Pulse Ox 98.0 F 108 H 20 126/69 99 11/18/19 11:51 11/18/19 11:51 11/18/19 11:51 11/18/19 11:51 11/18/19 11:51 Temperature -Last 24 Hours Temperature 98.0 F Temperature 98.3 F Temperature 98.6 F Temperature 98.6 F Temperature 98.6 F Results - Labs CBC & Chem 7: 11/18/19 04:56 11/18/19 04:56 Labs: Abnormal lab results 11/18/19 11/18/19 Range/Units 04:56 04:56 RBC 1.63 L (3.65-5.03) M/mm3 Hgb 5.6 L* (10.1-14.3) gm/dl Hct 17.0 L* (30.3-42.9) % MCV 104 H (79-97) fl MCH 34 H (28-32) pg RDW 29.6 H (13.2-15.2) % Monocytes % (Manual) 8.0 H (0.0-7.3) % Nucleated RBC % 2.0 H (0.0-0.9) % Potassium 3.4 L (3.6-5.0) mmol/L Creatinine 0.4 L (0.7-1.2) mg/dL Glucose 164 H (65-100) mg/dL Calcium 8.1 L (8.4-10.2) mg/dL Total Bilirubin 6.40 H (0.1-1.2) mg/dL AST 134 H (5-40) units/L ALT 238 H (7-56) units/L Alkaline Phosphatase 161 H (35-129) units/L Albumin 3.2 L (3.9-5) g/dL Assessment and Plan Cultures: Blood culture 11/15/2019 no growth today. Assessment: 34 y/o female with obesity, complicated cholecystectomy in 2018 with recurrent pancreatitis underwent an ERCP on September 07, 2019 with sphincterotomy, then she had severe pancreatitis complicated with necrotizing pancreatitis with large pseudocysts then developed biliary obstruction s/p metal biliary stent placement and cyst gastrostomy stents and debridement of necrosis endoscopically, biliary stent was removed on 10/17, also primary sclerosing cholangitis on budesonide admitted due to generalized weakness, lightheadedness and palpitations for 4 days associated with baseline epigastric abdominal pain: #SIRS: present on admission, of unclear etiology ? UTI ?biliary infection #UTI #Recent history of severe pancreatitis complicated with necrotizing pancreatitis with large pseudocysts then developed biliary obstruction s/p metal biliary stent placement and cyst gastrostomy stents and debridement of necrosis endoscopically, biliary stent was removed on 10/17, also primary sclerosing cholangitis on budesonide admitted due to generalized weakness, lightheadedness and palpitations for 4 days associated with baseline epigastric abdominal pain: #Elevated LFTs from #2 AST of 173 ALT 246 LP 204 and total bilirubin of 6.2. Recommendations: continue cefepime for now obtain procalcitonin/crp consider abd MRI Will follow. Yue Strong MD Infectious Diseases [employer] [facility] M [phone] O [phone]
[2019-11-18] MEDS: D5W/0.45% NACL/KCL 20 MEQ 20 MEQ/1,000 ML BAG IV SCH (17:35)
--- NOTE | 2019-11-18 23:08 | Progress Note ---
Assessment and Plan Assessment and plan: Obstructive Jaundice Admitted to medical floor GI consulted, following Discussed with Dr. Laguerre. He stated continue current management Anemia Hgb now 5.6 Blood ordered but still not available from [place] yet because she has some antibodies Transfuse total 3 units PRBC when available get stool occult blood Primary sclerosing cholangitis History of biliary stent Cysto-gastrostomy stent Follows with GI Hyperbilirubinemia GI to see Low grade fever 99.9 Started on cefepime in ED Cont Cefepime consulted ID Autoimmune hepatitis Follows as outpatient History Interval history: Less abdominal pain Blood not available yet Hospitalist Physical - Physical exam Narrative exam: GEN: Not in acute distress, Obese, lying in bed HEENT: Normocephalic, atraumatic, Neck: supple, No JVD Lungs: Clear to auscultation bilaterally, heart;S1 and S2 reg, no murmurs, rubs or gallop Abd:soft, tender RUQ,, non distended, normal bowel sounds, Ext: No edema, no clubbing, no cyanosis, Neuro: Awake,alert,oriented X3 , no focal signs, - Constitutional Vitals: Temp Pulse Resp BP Pulse Ox 98.8 F 107 H 18 126/75 100 11/18/19 22:12 11/18/19 22:04 11/18/19 21:58 11/18/19 22:04 11/18/19 22:04 General appearance: Present: no acute distress HEART Score - HEART Score Troponin: Troponin T < 0.010 ng/mL (0.00-0.029) 11/17/19 09:45 Results - Labs CBC & Chem 7: 11/18/19 04:56 11/18/19 04:56 Labs: Laboratory Last Values WBC 8.4 K/mm3 (4.5-11.0) 11/18/19 04:56 RBC 1.63 M/mm3 (3.65-5.03) L 11/18/19 04:56 Hgb 5.6 gm/dl (10.1-14.3) L* 11/18/19 04:56 Hct 17.0 % (30.3-42.9) L* 11/18/19 04:56 MCV 104 fl (79-97) H 11/18/19 04:56 MCH 34 pg (28-32) H 11/18/19 04:56 MCHC 33 % (30-34) 11/18/19 04:56 RDW 29.6 % (13.2-15.2) H 11/18/19 04:56 Plt Count 301 K/mm3 (140-440) 11/18/19 04:56 Add Manual Diff Complete 11/18/19 04:56 Total Counted 100 11/18/19 04:56 Seg Neuts % (Manual) 61.0 % (40.0-70.0) 11/18/19 04:56 Band Neutrophils % 4.0 % 11/18/19 04:56 Lymphocytes % (Manual) 25.0 % (13.4-35.0) 11/18/19 04:56 Reactive Lymphs % (Man) 0 % 11/18/19 04:56 Monocytes % (Manual) 8.0 % (0.0-7.3) H 11/18/19 04:56 Eosinophils % (Manual) 2.0 % (0.0-4.3) 11/18/19 04:56 Basophils % (Manual) 0 % (0.0-1.8) 11/18/19 04:56 Metamyelocytes % 0 % 11/18/19 04:56 Myelocytes % 0 % 11/18/19 04:56 Promyelocytes % 0 % 11/18/19 04:56 Blast Cells % 0 % 11/18/19 04:56 Nucleated RBC % 2.0 % (0.0-0.9) H 11/18/19 04:56 Seg Neutrophils # Man 5.1 K/mm3 (1.8-7.7) 11/18/19 04:56 Band Neutrophils # 0.3 K/mm3 11/18/19 04:56 Lymphocytes # (Manual) 2.1 K/mm3 (1.2-5.4) 11/18/19 04:56 Abs React Lymphs (Man) 0.0 K/mm3 11/18/19 04:56 Monocytes # (Manual) 0.7 K/mm3 (0.0-0.8) 11/18/19 04:56 Eosinophils # (Manual) 0.2 K/mm3 (0.0-0.4) 11/18/19 04:56 Basophils # (Manual) 0.0 K/mm3 (0.0-0.1) 11/18/19 04:56 Metamyelocytes # 0.0 K/mm3 11/18/19 04:56 Myelocytes # 0.0 K/mm3 11/18/19 04:56 Promyelocytes # 0.0 K/mm3 11/18/19 04:56 Blast Cells # 0.0 K/mm3 11/18/19 04:56 WBC Morphology Not Reportable 11/18/19 04:56 Hypersegmented Neuts Not Reportable 11/18/19 04:56 Hyposegmented Neuts Not Reportable 11/18/19 04:56 Hypogranular Neuts Not Reportable 11/18/19 04:56 Smudge Cells Not Reportable 11/18/19 04:56 Toxic Granulation Not Reportable 11/18/19 04:56 Toxic Vacuolation Not Reportable 11/18/19 04:56 Dohle Bodies Not Reportable 11/18/19 04:56 Pelger-Huet Anomaly Not Reportable 11/18/19 04:56 Valentina Rods Not Reportable 11/18/19 04:56 Platelet Estimate Consistent w auto 11/18/19 04:56 Clumped Platelets Not Reportable 11/18/19 04:56 Plt Clumps, EDTA Not Reportable 11/18/19 04:56 Large Platelets Not Reportable 11/18/19 04:56 Giant Platelets Not Reportable 11/18/19 04:56 Platelet Satelliting Not Reportable 11/18/19 04:56 Plt Morphology Comment Not Reportable 11/18/19 04:56 RBC Morphology Not Reportable 11/18/19 04:56 Dimorphic RBCs Not Reportable 11/18/19 04:56 Polychromasia Not Reportable 11/18/19 04:56 Hypochromasia 3+ 11/18/19 04:56 Poikilocytosis Not Reportable 11/18/19 04:56 Anisocytosis 2+ 11/18/19 04:56 Microcytosis Not Reportable 11/18/19 04:56 Macrocytosis 2+ 11/18/19 04:56 Spherocytes Not Reportable 11/18/19 04:56 Pappenheimer Bodies Not Reportable 11/18/19 04:56 Sickle Cells Not Reportable 11/18/19 04:56 Target Cells Not Reportable 11/18/19 04:56 Tear Drop Cells Not Reportable 11/18/19 04:56 Ovalocytes Not Reportable 11/18/19 04:56 Stomatocytes Few 11/17/19 09:12 Helmet Cells Not Reportable 11/18/19 04:56 [place] Bodies Not Reportable 11/18/19 04:56 [place] Rings Not Reportable 11/18/19 04:56 [place] Cells Not Reportable 11/18/19 04:56 Bite Cells Not Reportable 11/18/19 04:56 Crenated Cell Not Reportable 11/18/19 04:56 Elliptocytes Not Reportable 11/18/19 04:56 Acanthocytes (Spur) Not Reportable 11/18/19 04:56 Rouleaux Not Reportable 11/18/19 04:56 Hemoglobin C Crystals Not Reportable 11/18/19 04:56 Schistocytes Not Reportable 11/18/19 04:56 Malaria parasites Not Reportable 11/18/19 04:56 [place] Bodies Not Reportable 11/18/19 04:56 Hem Pathologist Commnt No 11/18/19 04:56 PT 13.3 Sec. (12.2-14.9) 11/17/19 09:45 INR 1.00 (0.87-1.13) 11/17/19 09:45 APTT 20.1 Sec. (24.2-36.6) L 11/17/19 09:45 Sodium 140 mmol/L (137-145) 11/18/19 04:56 Potassium 3.4 mmol/L (3.6-5.0) L 11/18/19 04:56 Chloride 102.2 mmol/L (98-107) 11/18/19 04:56 Carbon Dioxide 23 mmol/L (22-30) 11/18/19 04:56 Anion Gap 18 mmol/L 11/18/19 04:56 BUN 10 mg/dL (7-17) 11/18/19 04:56 Creatinine 0.4 mg/dL (0.7-1.2) L 11/18/19 04:56 Estimated GFR > 60 ml/min 11/18/19 04:56 BUN/Creatinine Ratio 25 % 11/18/19 04:56 Glucose 164 mg/dL (65-100) H 11/18/19 04:56 Lactic Acid 1.80 mmol/L (0.7-2.0) 11/17/19 09:48 Calcium 8.1 mg/dL (8.4-10.2) L 11/18/19 04:56 Magnesium 1.70 mg/dL (1.7-2.3) 11/18/19 04:56 Total Bilirubin 6.40 mg/dL (0.1-1.2) H 11/18/19 04:56 AST 134 units/L (5-40) H 11/18/19 04:56 ALT 238 units/L (7-56) H 11/18/19 04:56 Alkaline Phosphatase 161 units/L (35-129) H 11/18/19 04:56 Ammonia 14.0 umol/L (25-60) L 11/17/19 09:45 Total Creatine Kinase 28 units/L (30-135) L 11/17/19 09:45 CK-MB (CK-2) < 1.0 ng/mL (0.0-4.0) 11/17/19 09:45 CK-MB (CK-2) Rel Index 3.5 (0-4) 11/17/19 09:45 Troponin T < 0.010 ng/mL (0.00-0.029) 11/17/19 09:45 C-Reactive Protein 9.90 mg/dL (0.00-1.30) H 11/18/19 16:29 NT-Pro-B Natriuret Pep 64.99 pg/mL (0-450) 11/17/19 09:45 Total Protein 6.7 g/dL (6.3-8.2) 11/18/19 04:56 Albumin 3.2 g/dL (3.9-5) L 11/18/19 04:56 Albumin/Globulin Ratio 0.9 % 11/18/19 04:56 Lipase 19 units/L (13-60) 11/17/19 09:12 HCG, Qual Negative (Negative) 11/17/19 11:21 Urine Color Yeimi (Yellow) 11/17/19 Unknown Urine Turbidity Clear (Clear) 11/17/19 Unknown Urine pH 5.0 (5.0-7.0) 11/17/19 Unknown Ur Specific [place] 1.018 (1.003-1.030) 11/17/19 Unknown Urine Protein 30 mg/dl mg/dL (Negative) 11/17/19 Unknown Urine Glucose (UA) Neg mg/dL (Negative) 11/17/19 Unknown Urine Ketones 20 mg/dL (Negative) 11/17/19 Unknown Urine Blood Neg (Negative) 11/17/19 Unknown Urine Nitrite Neg (Negative) 11/17/19 Unknown Urine Bilirubin Sm (Negative) 11/17/19 Unknown Urine Ictotest Negative (Negative) 11/17/19 Unknown Urine Urobilinogen 4.0 mg/dL (<2.0) 11/17/19 Unknown Ur Leukocyte Esterase Sm (Negative) 11/17/19 Unknown Urine WBC (Auto) 68.0 /HPF (0.0-6.0) H 11/17/19 Unknown Urine RBC (Auto) 3.0 /HPF (0.0-6.0) 11/17/19 Unknown U Epithel Cells (Auto) 4.0 /HPF (0-13.0) 11/17/19 Unknown Urine Bacteria (Auto) 1+ /HPF (Negative) 11/17/19 Unknown Urine Mucus 2+ /HPF 11/17/19 Unknown Blood Type O POSITIVE 11/17/19 09:45 Antibody Screen Positive 11/17/19 09:45 Crossmatch See Detail 11/17/19 09:45 Microbiology: Microbiology 11/17/19 11:57 Urine,Clean Catch Urine Culture - Final 11/17/19 09:45 Peripheral/Venous Blood Culture - Preliminary NO GROWTH AFTER 24 HOURS 11/17/19 09:45 Peripheral/Venous Blood Culture - Preliminary NO GROWTH AFTER 24 HOURS Law/IV: Voiding Method Toilet IV Catheter Type [Right Hand] INT / Saline Lock IV Catheter Type [Left INT / Saline Lock Antecubital] Active Medications - Current Medications Current Medications: Generic Name Dose Route Start Last Admin Trade Name Freq PRN Reason Stop Dose Admin Acetaminophen 650 mg 11/17/19 16:09 Tylenol PO Q4H PRN Pain MILD(1-3)/Fever >100.5/BECKER Potassium Chloride/Dextrose/Sod Cl 20 meq in 1,000 mls @ 75 mls/hr 11/17/19 14:00 11/18/19 17:35 D5w/0.45% Nacl/Kcl 20 Meq IV 75 mls/hr DIRECT YUNIER Administration Cefepime HCl 1 gm in 100 mls @ 200 mls/hr 11/17/19 18:00 11/18/19 17:33 Cefepime/Ns 1 Gm/100 Ml IV 200 mls/hr Q8H YUNIER Administration Protocol Morphine Sulfate 2 mg 11/17/19 12:42 11/18/19 21:58 Morphine IV 2 mg Q3H PRN Administration Pain, Moderate (4-6) Morphine Sulfate 4 mg 11/17/19 16:09 11/18/19 02:59 Morphine IV 4 mg Q4H PRN Administration Pain , Severe (7-10) Ondansetron HCl 4 mg 11/17/19 16:09 Zofran IV Q8H PRN Nausea And Vomiting Sodium Chloride 10 ml 11/17/19 22:00 11/18/19 22:11 Sodium Chloride Flush Syringe 10 Ml IV 10 ml BID YUNIER Administration Sodium Chloride 10 ml 11/17/19 16:09 Sodium Chloride Flush Syringe 10 Ml IV PRN PRN LINE FLUSH Zolpidem Tartrate 5 mg 11/17/19 22:32 11/17/19 23:04 Ambien PO 5 mg QHS PRN Administration Sleep
[2019-11-19] MEDS: ZOLPIDEM 5 MG TAB PO PRN (00:34)
[2019-11-19] MEDS: ONDANSETRON 4 MG/2 ML INJ IV PRN ×2 (02:40→22:20)
[2019-11-19] MEDS: CEFEPIME/NS 1 GM/100 ML 1 GM/100 ML BAG IV SCH ×3 (02:40→18:47)
[2019-11-19] MEDS: MORPHINE 2 MG/1 ML INJ IV PRN ×5 (02:40→22:20)
[2019-11-19] MEDS: D5W/0.45% NACL/KCL 20 MEQ 20 MEQ/1,000 ML BAG IV SCH (06:48)
[2019-11-19] MEDS ORDERED: NORGESTREL ETHINYL ESTRADIOL PO SCH (10:00)
[2019-11-19] MEDS ORDERED: URSODIOL 500 MG PO SCH (10:00)
[2019-11-19] MEDS ORDERED: BUDESONIDE 3 MG PO SCH (10:00)
[2019-11-19] MEDS: URSODIOL 250 MG TAB PO SCH ×2 (10:19→22:20)
[2019-11-19] MEDS: PANTOPRAZOLE 40 MG TAB PO SCH (10:19)
[2019-11-19] MEDS: LOSARTAN 50 MG TAB PO SCH (10:19)
[2019-11-19] MEDS: metFORMIN 500 MG TAB PO SCH ×2 (10:28→18:37)
--- NOTE | 2019-11-19 12:25 | Progress Note ---
Assessment and Plan Assessment and plan: Obstructive Jaundice Admitted to medical floor GI consulted, following Discussed with Dr. Laguerre. He stated continue current management Anemia Hgb now 5.6 Blood ordered but still not available from [place] yet because she has some antibodies Transfuse total 3 units PRBC when available get stool occult blood Primary sclerosing cholangitis History of biliary stent Cysto-gastrostomy stent Follows with GI Hyperbilirubinemia GI was following Low grade fever 99.9 Started on cefepime in ED Cont Cefepime consulted ID, she was seen by Dr. Hilton Autoimmune hepatitis Follows as outpatient 11/19/19 Patient with severe anemia, jaundice. Blood still not available yet. Hopefully transfuse blood today. To c home after blood given. History Interval history: Less abdominal pain Blood still not available yet Hospitalist Physical - Physical exam Narrative exam: GEN: Not in acute distress, Obese, lying in bed HEENT: Normocephalic, atraumatic, Neck: supple, No JVD Lungs: Clear to auscultation bilaterally, heart;S1 and S2 reg, no murmurs, rubs or gallop Abd:soft, tender RUQ,, non distended, normal bowel sounds, Ext: No edema, no clubbing, no cyanosis, Neuro: Awake,alert,oriented X3 , no focal signs, - Constitutional Vitals: Temp Pulse Resp BP Pulse Ox 99.0 F 109 H 19 113/61 93 11/19/19 11:19 11/19/19 11:19 11/19/19 11:19 11/19/19 11:19 11/19/19 11:19 General appearance: Present: no acute distress HEART Score - HEART Score Troponin: Troponin T < 0.010 ng/mL (0.00-0.029) 11/17/19 09:45 Results - Labs CBC & Chem 7: 11/18/19 04:56 11/18/19 04:56 Labs: Laboratory Last Values WBC 8.4 K/mm3 (4.5-11.0) 11/18/19 04:56 RBC 1.63 M/mm3 (3.65-5.03) L 11/18/19 04:56 Hgb 5.6 gm/dl (10.1-14.3) L* 11/18/19 04:56 Hct 17.0 % (30.3-42.9) L* 11/18/19 04:56 MCV 104 fl (79-97) H 11/18/19 04:56 MCH 34 pg (28-32) H 11/18/19 04:56 MCHC 33 % (30-34) 11/18/19 04:56 RDW 29.6 % (13.2-15.2) H 11/18/19 04:56 Plt Count 301 K/mm3 (140-440) 11/18/19 04:56 Add Manual Diff Complete 11/18/19 04:56 Total Counted 100 11/18/19 04:56 Seg Neuts % (Manual) 61.0 % (40.0-70.0) 11/18/19 04:56 Band Neutrophils % 4.0 % 11/18/19 04:56 Lymphocytes % (Manual) 25.0 % (13.4-35.0) 11/18/19 04:56 Reactive Lymphs % (Man) 0 % 11/18/19 04:56 Monocytes % (Manual) 8.0 % (0.0-7.3) H 11/18/19 04:56 Eosinophils % (Manual) 2.0 % (0.0-4.3) 11/18/19 04:56 Basophils % (Manual) 0 % (0.0-1.8) 11/18/19 04:56 Metamyelocytes % 0 % 11/18/19 04:56 Myelocytes % 0 % 11/18/19 04:56 Promyelocytes % 0 % 11/18/19 04:56 Blast Cells % 0 % 11/18/19 04:56 Nucleated RBC % 2.0 % (0.0-0.9) H 11/18/19 04:56 Seg Neutrophils # Man 5.1 K/mm3 (1.8-7.7) 11/18/19 04:56 Band Neutrophils # 0.3 K/mm3 11/18/19 04:56 Lymphocytes # (Manual) 2.1 K/mm3 (1.2-5.4) 11/18/19 04:56 Abs React Lymphs (Man) 0.0 K/mm3 11/18/19 04:56 Monocytes # (Manual) 0.7 K/mm3 (0.0-0.8) 11/18/19 04:56 Eosinophils # (Manual) 0.2 K/mm3 (0.0-0.4) 11/18/19 04:56 Basophils # (Manual) 0.0 K/mm3 (0.0-0.1) 11/18/19 04:56 Metamyelocytes # 0.0 K/mm3 11/18/19 04:56 Myelocytes # 0.0 K/mm3 11/18/19 04:56 Promyelocytes # 0.0 K/mm3 11/18/19 04:56 Blast Cells # 0.0 K/mm3 11/18/19 04:56 WBC Morphology Not Reportable 11/18/19 04:56 Hypersegmented Neuts Not Reportable 11/18/19 04:56 Hyposegmented Neuts Not Reportable 11/18/19 04:56 Hypogranular Neuts Not Reportable 11/18/19 04:56 Smudge Cells Not Reportable 11/18/19 04:56 Toxic Granulation Not Reportable 11/18/19 04:56 Toxic Vacuolation Not Reportable 11/18/19 04:56 Dohle Bodies Not Reportable 11/18/19 04:56 Pelger-Huet Anomaly Not Reportable 11/18/19 04:56 Valentina Rods Not Reportable 11/18/19 04:56 Platelet Estimate Consistent w auto 11/18/19 04:56 Clumped Platelets Not Reportable 11/18/19 04:56 Plt Clumps, EDTA Not Reportable 11/18/19 04:56 Large Platelets Not Reportable 11/18/19 04:56 Giant Platelets Not Reportable 11/18/19 04:56 Platelet Satelliting Not Reportable 11/18/19 04:56 Plt Morphology Comment Not Reportable 11/18/19 04:56 RBC Morphology Not Reportable 11/18/19 04:56 Dimorphic RBCs Not Reportable 11/18/19 04:56 Polychromasia Not Reportable 11/18/19 04:56 Hypochromasia 3+ 11/18/19 04:56 Poikilocytosis Not Reportable 11/18/19 04:56 Anisocytosis 2+ 11/18/19 04:56 Microcytosis Not Reportable 11/18/19 04:56 Macrocytosis 2+ 11/18/19 04:56 Spherocytes Not Reportable 11/18/19 04:56 Pappenheimer Bodies Not Reportable 11/18/19 04:56 Sickle Cells Not Reportable 11/18/19 04:56 Target Cells Not Reportable 11/18/19 04:56 Tear Drop Cells Not Reportable 11/18/19 04:56 Ovalocytes Not Reportable 11/18/19 04:56 Stomatocytes Few 11/17/19 09:12 Helmet Cells Not Reportable 11/18/19 04:56 [place] Bodies Not Reportable 11/18/19 04:56 [place] Rings Not Reportable 11/18/19 04:56 Cora Cells Not Reportable 11/18/19 04:56 Bite Cells Not Reportable 11/18/19 04:56 Crenated Cell Not Reportable 11/18/19 04:56 Elliptocytes Not Reportable 11/18/19 04:56 Acanthocytes (Spur) Not Reportable 11/18/19 04:56 Rouleaux Not Reportable 11/18/19 04:56 Hemoglobin C Crystals Not Reportable 11/18/19 04:56 Schistocytes Not Reportable 11/18/19 04:56 Malaria parasites Not Reportable 11/18/19 04:56 Ky Bodies Not Reportable 11/18/19 04:56 Hem Pathologist Commnt No 11/18/19 04:56 PT 13.3 Sec. (12.2-14.9) 11/17/19 09:45 INR 1.00 (0.87-1.13) 11/17/19 09:45 APTT 20.1 Sec. (24.2-36.6) L 11/17/19 09:45 Sodium 140 mmol/L (137-145) 11/18/19 04:56 Potassium 3.4 mmol/L (3.6-5.0) L 11/18/19 04:56 Chloride 102.2 mmol/L (98-107) 11/18/19 04:56 Carbon Dioxide 23 mmol/L (22-30) 11/18/19 04:56 Anion Gap 18 mmol/L 11/18/19 04:56 BUN 10 mg/dL (7-17) 11/18/19 04:56 Creatinine 0.4 mg/dL (0.7-1.2) L 11/18/19 04:56 Estimated GFR > 60 ml/min 11/18/19 04:56 BUN/Creatinine Ratio 25 % 11/18/19 04:56 Glucose 164 mg/dL (65-100) H 11/18/19 04:56 POC Glucose 182 (70-105) H 11/19/19 11:30 Lactic Acid 1.80 mmol/L (0.7-2.0) 11/17/19 09:48 Calcium 8.1 mg/dL (8.4-10.2) L 11/18/19 04:56 Magnesium 1.70 mg/dL (1.7-2.3) 11/18/19 04:56 Total Bilirubin 6.40 mg/dL (0.1-1.2) H 11/18/19 04:56 AST 134 units/L (5-40) H 11/18/19 04:56 ALT 238 units/L (7-56) H 11/18/19 04:56 Alkaline Phosphatase 161 units/L (35-129) H 11/18/19 04:56 Ammonia 14.0 umol/L (25-60) L 11/17/19 09:45 Total Creatine Kinase 28 units/L (30-135) L 11/17/19 09:45 CK-MB (CK-2) < 1.0 ng/mL (0.0-4.0) 11/17/19 09:45 CK-MB (CK-2) Rel Index 3.5 (0-4) 11/17/19 09:45 Troponin T < 0.010 ng/mL (0.00-0.029) 11/17/19 09:45 C-Reactive Protein 9.90 mg/dL (0.00-1.30) H 11/18/19 16:29 NT-Pro-B Natriuret Pep 64.99 pg/mL (0-450) 11/17/19 09:45 Total Protein 6.7 g/dL (6.3-8.2) 11/18/19 04:56 Albumin 3.2 g/dL (3.9-5) L 11/18/19 04:56 Albumin/Globulin Ratio 0.9 % 11/18/19 04:56 Lipase 19 units/L (13-60) 11/17/19 09:12 Procalcitonin 0.18 ng/mL (<0.15) 11/18/19 16:29 HCG, Qual Negative (Negative) 11/17/19 11:21 Urine Color Yeimi (Yellow) 11/17/19 Unknown Urine Turbidity Clear (Clear) 11/17/19 Unknown Urine pH 5.0 (5.0-7.0) 11/17/19 Unknown Ur Specific [place] 1.018 (1.003-1.030) 11/17/19 Unknown Urine Protein 30 mg/dl mg/dL (Negative) 11/17/19 Unknown Urine Glucose (UA) Neg mg/dL (Negative) 11/17/19 Unknown Urine Ketones 20 mg/dL (Negative) 11/17/19 Unknown Urine Blood Neg (Negative) 11/17/19 Unknown Urine Nitrite Neg (Negative) 11/17/19 Unknown Urine Bilirubin Sm (Negative) 11/17/19 Unknown Urine Ictotest Negative (Negative) 11/17/19 Unknown Urine Urobilinogen 4.0 mg/dL (<2.0) 11/17/19 Unknown Ur Leukocyte Esterase Sm (Negative) 11/17/19 Unknown Urine WBC (Auto) 68.0 /HPF (0.0-6.0) H 11/17/19 Unknown Urine RBC (Auto) 3.0 /HPF (0.0-6.0) 11/17/19 Unknown U Epithel Cells (Auto) 4.0 /HPF (0-13.0) 11/17/19 Unknown Urine Bacteria (Auto) 1+ /HPF (Negative) 11/17/19 Unknown Urine Mucus 2+ /HPF 11/17/19 Unknown Blood Type O POSITIVE 11/17/19 09:45 Antibody Screen Positive 11/17/19 09:45 Crossmatch See Detail 11/17/19 09:45 Microbiology: Microbiology 11/17/19 09:45 Peripheral/Venous Blood Culture - Preliminary NO GROWTH AFTER 48 HOURS 11/17/19 09:45 Peripheral/Venous Blood Culture - Preliminary NO GROWTH AFTER 48 HOURS 11/17/19 11:57 Urine,Clean Catch Urine Culture - Final Law/IV: Voiding Method Toilet IV Catheter Type [Right Hand] INT / Saline Lock IV Catheter Type [Left INT / Saline Lock Antecubital] Active Medications - Current Medications Current Medications: Generic Name Dose Route Start Last Admin Trade Name Freq PRN Reason Stop Dose Admin Acetaminophen 650 mg 11/17/19 16:09 Tylenol PO Q4H PRN Pain MILD(1-3)/Fever >100.5/BECKER Cefepime HCl 1 gm in 100 mls @ 200 mls/hr 11/17/19 18:00 11/19/19 10:19 Cefepime/Ns 1 Gm/100 Ml IV 200 mls/hr Q8H YUNIER Administration Protocol Losartan Potassium 50 mg 11/19/19 10:00 11/19/19 10:19 Cozaar PO 50 mg QDAY YUNIER Administration Metformin HCl 500 mg 11/19/19 10:00 11/19/19 10:28 Glucophage PO 500 mg BIDDIAB YUNIER Administration Miscellaneous Medication 1 each 11/19/19 10:00 Norgestrel-Ethinyl Estradiol [[id number] Tablet] PO DAILY [facility] Miscellaneous Medication 3 mg 11/19/19 10:00 Budesonide [Budesonide Ec] PO QAM YUNIER Morphine Sulfate 2 mg 11/17/19 12:42 11/19/19 09:33 Morphine IV 2 mg Q3H PRN Administration Pain, Moderate (4-6) Morphine Sulfate 4 mg 11/17/19 16:09 11/18/19 02:59 Morphine IV 4 mg Q4H PRN Administration Pain , Severe (7-10) Ondansetron HCl 4 mg 11/17/19 16:09 11/19/19 02:40 Zofran IV 4 mg Q8H PRN Administration Nausea And Vomiting Pantoprazole Sodium 40 mg 11/19/19 10:00 11/19/19 10:19 Protonix PO 40 mg QDAY YUNIER Administration Sodium Chloride 10 ml 11/17/19 22:00 11/19/19 10:29 Sodium Chloride Flush Syringe 10 Ml IV 10 ml BID YUNIER Administration Sodium Chloride 10 ml 11/17/19 16:09 Sodium Chloride Flush Syringe 10 Ml IV PRN PRN LINE FLUSH Ursodiol 500 mg 11/19/19 10:00 11/19/19 10:19 Ursodiol PO 500 mg BID YUNIER Administration Zolpidem Tartrate 5 mg 11/17/19 22:32 11/19/19 00:34 Ambien PO 5 mg QHS PRN Administration Sleep
[2019-11-19] MEDS ORDERED: SODIUM FERRIC GLUCON/SUCRO 125 MG in SODIUM CHLORIDE 0.9% 100 ML IV ONE (18:11)
--- NOTE | 2019-11-19 18:24 | Gastroenterology Progress Note ---
Assessment and Plan - Patient Problems (1) Acute blood loss anemia Current Visit: Yes Status: Acute Plan to address problem: - Patient has extensive antibodies, and still can not be transfused. Suspect blood loss from necrotic (pancreas) debridement by GI 10 days ago. - No gross melena, or hematemesis, but patient has now also started her cycle. - Will give IV iron, and also continue her daily protonix. - IV PRBC when available, and she may d/c home. (2) PSC (primary sclerosing cholangitis) Current Visit: Yes Status: Acute Plan to address problem: - Dx 10/2019, and patient currently on steroids/ursodiol. - Will get colonoscopy (mom with Crohns) when pancreatitis resolved. (3) Acute necrotizing pancreatitis Current Visit: Yes Status: Acute Plan to address problem: - Severe recurrent pancreatitis . - Patient currently has [address] - Surveillance CT scan next week at [place] (location of primary GI) to determine if stents able to be pulled. - New insulin-dependent DM. Subjective Date of service: 11/19/19 Principal diagnosis: Necrotizing Pancreatitis, PSC Interval history: The patient says she is tolerating her diet with minimal abdominal pain. She still has not been able to be transfused (antibodies). She has no N/V, and says there is no blood in her stools, but her cycle has started. Objective - Constitutional Vitals: Temp Pulse Resp BP Pulse Ox 99.2 F 107 H 18 107/58 95 11/19/19 16:20 11/19/19 16:20 11/19/19 16:20 11/19/19 16:20 11/19/19 16:20 General appearance: no acute distress - Respiratory Respiratory effort: normal Respiratory: bilateral: CTA - Cardiovascular Rhythm: regular Heart Sounds: Present: S1 & S2 - Gastrointestinal General gastrointestinal: Present: soft, non-tender, non-distended - Labs CBC & Chem 7: 11/18/19 04:56 11/18/19 04:56 Labs: Laboratory Results - last 24 hr 11/18/19 11/19/19 11/19/19 16:29 08:51 11:30 POC Glucose 197 H 182 H Procalcitonin 0.18 11/19/19 16:31 POC Glucose 148 H Procalcitonin
[2019-11-20] MEDS: MORPHINE 2 MG/1 ML INJ IV PRN ×3 (01:53→15:06)
[2019-11-20] MEDS: CEFEPIME/NS 1 GM/100 ML 1 GM/100 ML BAG IV SCH ×3 (01:54→17:30)
[2019-11-20] MEDS: metFORMIN 500 MG TAB PO SCH ×2 (08:12→16:38)
[2019-11-20] MEDS ORDERED: FERROUS SULFATE 325 MG TAB PO SCH (10:00)
--- NOTE | 2019-11-20 10:25 | Gastroenterology Progress Note ---
Assessment and Plan - Patient Problems (1) Acute blood loss anemia Current Visit: Yes Status: Acute Plan to address problem: - Patient has extensive antibodies, and still can not be transfused. Suspect blood loss from necrotic (pancreas) debridement by GI 10 days ago. - No gross melena, or hematemesis, but patient has now also started her cycle. - S/p IV iron, and also continue her daily protonix. - IV PRBC when available, but will re-check CBC today --> if low, could consider epogen rather than transfusion. If CBC markedly better, could d/c home. (2) PSC (primary sclerosing cholangitis) Current Visit: Yes Status: Acute Plan to address problem: - Dx 10/2019, and patient currently on steroids/ursodiol. - Will get colonoscopy (mom with Crohns) when pancreatitis resolved. (3) Acute necrotizing pancreatitis Current Visit: Yes Status: Acute Plan to address problem: - Severe recurrent pancreatitis . - Patient currently has [address] - Surveillance CT scan next week at [place] (location of primary GI) to determine if stents able to be pulled. - New insulin-dependent DM. Subjective Date of service: 11/20/19 Principal diagnosis: Necrotizing Pancreatitis, PSC Interval history: The patient is eating without pain or fevers. She has no N/V. She is still on her cycle, but has not had a BM. She rec'd IV iron last night without event, but her autoantibodies are precluding blood transfusion at present. Objective - Constitutional Vitals: Temp Pulse Resp BP Pulse Ox 98.8 F 108 H 16 115/52 97 11/20/19 06:19 11/20/19 06:19 11/20/19 06:19 11/20/19 06:19 11/20/19 06:19 General appearance: no acute distress - Respiratory Respiratory effort: normal Respiratory: bilateral: CTA - Cardiovascular Rhythm: regular Heart Sounds: Present: S1 & S2 - Gastrointestinal General gastrointestinal: Present: soft, non-tender, non-distended - Labs CBC & Chem 7: 11/18/19 04:56 11/18/19 04:56 Labs: Laboratory Results - last 24 hr 11/17/19 11/18/19 11/19/19 22:00 16:29 11:30 POC Glucose 182 H Procalcitonin 0.18 Nasal Screen MRSA (PCR) Positive 11/19/19 11/20/19 16:31 08:06 POC Glucose 148 H 121 H Procalcitonin Nasal Screen MRSA (PCR)
[2019-11-20] MEDS: URSODIOL 250 MG TAB PO SCH ×2 (10:31→21:34)
[2019-11-20] MEDS: PANTOPRAZOLE 40 MG TAB PO SCH (10:33)
[2019-11-20] MEDS: LOSARTAN 50 MG TAB PO SCH (10:34)
--- NOTE | 2019-11-20 10:42 | Progress Note ---
Assessment and Plan Assessment and plan: Obstructive Jaundice Admitted to medical floor GI consulted, following Discussed with Dr. Laguerre. He stated continue current management Anemia Hgb now 5.1 Blood ordered but still not available from [place] yet because she has some antibodies Transfuse total 3 units PRBC when available get stool occult blood Primary sclerosing cholangitis History of biliary stent Cysto-gastrostomy stent Follows with GI Hyperbilirubinemia GI was following Low grade fever 99.9 Started on cefepime in ED Cont Cefepime consulted ID, she was seen by Dr. Hilton Autoimmune hepatitis Follows as outpatient 11/19/19 Patient with severe anemia, jaundice. Blood still not available yet. Hopefully transfuse blood today. To dc home after blood given. 11/20/19 Patient with severe anemia. Given Iron iv yesterday. Hgb repeat 5.1. Dr. Pina recommended Epogen, dose ordered. Blood still not available yet. History Interval history: Less abdominal pain Blood still not available yet Hospitalist Physical - Physical exam Narrative exam: GEN: Not in acute distress, Obese, lying in bed HEENT: Normocephalic, atraumatic, Neck: supple, No JVD Lungs: Clear to auscultation bilaterally, heart;S1 and S2 reg, no murmurs, rubs or gallop Abd:soft, tender RUQ,, non distended, normal bowel sounds, Ext: No edema, no clubbing, no cyanosis, Neuro: Awake,alert,oriented X3 , no focal signs, - Constitutional Vitals: Temp Pulse Resp BP Pulse Ox 98.8 F 98 H 16 116/60 97 11/20/19 06:19 11/20/19 10:34 11/20/19 06:19 11/20/19 10:34 11/20/19 06:19 General appearance: Present: no acute distress HEART Score - HEART Score Troponin: Troponin T < 0.010 ng/mL (0.00-0.029) 11/17/19 09:45 Results - Labs CBC & Chem 7: 11/20/19 11:00 11/18/19 04:56 Labs: Laboratory Last Values WBC 8.4 K/mm3 (4.5-11.0) 11/18/19 04:56 RBC 1.63 M/mm3 (3.65-5.03) L 11/18/19 04:56 Hgb 5.6 gm/dl (10.1-14.3) L* 11/18/19 04:56 Hct 17.0 % (30.3-42.9) L* 11/18/19 04:56 MCV 104 fl (79-97) H 11/18/19 04:56 MCH 34 pg (28-32) H 11/18/19 04:56 MCHC 33 % (30-34) 11/18/19 04:56 RDW 29.6 % (13.2-15.2) H 11/18/19 04:56 Plt Count 301 K/mm3 (140-440) 11/18/19 04:56 Add Manual Diff Complete 11/18/19 04:56 Total Counted 100 11/18/19 04:56 Seg Neuts % (Manual) 61.0 % (40.0-70.0) 11/18/19 04:56 Band Neutrophils % 4.0 % 11/18/19 04:56 Lymphocytes % (Manual) 25.0 % (13.4-35.0) 11/18/19 04:56 Reactive Lymphs % (Man) 0 % 11/18/19 04:56 Monocytes % (Manual) 8.0 % (0.0-7.3) H 11/18/19 04:56 Eosinophils % (Manual) 2.0 % (0.0-4.3) 11/18/19 04:56 Basophils % (Manual) 0 % (0.0-1.8) 11/18/19 04:56 Metamyelocytes % 0 % 11/18/19 04:56 Myelocytes % 0 % 11/18/19 04:56 Promyelocytes % 0 % 11/18/19 04:56 Blast Cells % 0 % 11/18/19 04:56 Nucleated RBC % 2.0 % (0.0-0.9) H 11/18/19 04:56 Seg Neutrophils # Man 5.1 K/mm3 (1.8-7.7) 11/18/19 04:56 Band Neutrophils # 0.3 K/mm3 11/18/19 04:56 Lymphocytes # (Manual) 2.1 K/mm3 (1.2-5.4) 11/18/19 04:56 Abs React Lymphs (Man) 0.0 K/mm3 11/18/19 04:56 Monocytes # (Manual) 0.7 K/mm3 (0.0-0.8) 11/18/19 04:56 Eosinophils # (Manual) 0.2 K/mm3 (0.0-0.4) 11/18/19 04:56 Basophils # (Manual) 0.0 K/mm3 (0.0-0.1) 11/18/19 04:56 Metamyelocytes # 0.0 K/mm3 11/18/19 04:56 Myelocytes # 0.0 K/mm3 11/18/19 04:56 Promyelocytes # 0.0 K/mm3 11/18/19 04:56 Blast Cells # 0.0 K/mm3 11/18/19 04:56 WBC Morphology Not Reportable 11/18/19 04:56 Hypersegmented Neuts Not Reportable 11/18/19 04:56 Hyposegmented Neuts Not Reportable 11/18/19 04:56 Hypogranular Neuts Not Reportable 11/18/19 04:56 Smudge Cells Not Reportable 11/18/19 04:56 Toxic Granulation Not Reportable 11/18/19 04:56 Toxic Vacuolation Not Reportable 11/18/19 04:56 Dohle Bodies Not Reportable 11/18/19 04:56 Pelger-Huet Anomaly Not Reportable 11/18/19 04:56 Valentina Rods Not Reportable 11/18/19 04:56 Platelet Estimate Consistent w auto 11/18/19 04:56 Clumped Platelets Not Reportable 11/18/19 04:56 Plt Clumps, EDTA Not Reportable 11/18/19 04:56 Large Platelets Not Reportable 11/18/19 04:56 Giant Platelets Not Reportable 11/18/19 04:56 Platelet Satelliting Not Reportable 11/18/19 04:56 Plt Morphology Comment Not Reportable 11/18/19 04:56 RBC Morphology Not Reportable 11/18/19 04:56 Dimorphic RBCs Not Reportable 11/18/19 04:56 Polychromasia Not Reportable 11/18/19 04:56 Hypochromasia 3+ 11/18/19 04:56 Poikilocytosis Not Reportable 11/18/19 04:56 Anisocytosis 2+ 11/18/19 04:56 Microcytosis Not Reportable 11/18/19 04:56 Macrocytosis 2+ 05/22/20 04:56 Spherocytes Not Reportable 11/18/19 04:56 Pappenheimer Bodies Not Reportable 11/18/19 04:56 Sickle Cells Not Reportable 11/18/19 04:56 Target Cells Not Reportable 11/18/19 04:56 Tear Drop Cells Not Reportable 11/18/19 04:56 Ovalocytes Not Reportable 11/18/19 04:56 Stomatocytes Few 11/17/19 09:12 Helmet Cells Not Reportable 11/18/19 04:56 [place] Bodies Not Reportable 11/18/19 04:56 [place] Rings Not Reportable 11/18/19 04:56 Cora Cells Not Reportable 11/18/19 04:56 Bite Cells Not Reportable 11/18/19 04:56 Crenated Cell Not Reportable 11/18/19 04:56 Elliptocytes Not Reportable 11/18/19 04:56 Acanthocytes (Spur) Not Reportable 11/18/19 04:56 Rouleaux Not Reportable 11/18/19 04:56 Hemoglobin C Crystals Not Reportable 11/18/19 04:56 Schistocytes Not Reportable 11/18/19 04:56 Malaria parasites Not Reportable 11/18/19 04:56 Ky Bodies Not Reportable 11/18/19 04:56 Hem Pathologist Commnt No 11/18/19 04:56 PT 13.3 Sec. (12.2-14.9) 11/17/19 09:45 INR 1.00 (0.87-1.13) 11/17/19 09:45 APTT 20.1 Sec. (24.2-36.6) L 11/17/19 09:45 Sodium 140 mmol/L (137-145) 11/18/19 04:56 Potassium 3.4 mmol/L (3.6-5.0) L 11/18/19 04:56 Chloride 102.2 mmol/L (98-107) 11/18/19 04:56 Carbon Dioxide 23 mmol/L (22-30) 11/18/19 04:56 Anion Gap 18 mmol/L 11/18/19 04:56 BUN 10 mg/dL (7-17) 11/18/19 04:56 Creatinine 0.4 mg/dL (0.7-1.2) L 11/18/19 04:56 Estimated GFR > 60 ml/min 11/18/19 04:56 BUN/Creatinine Ratio 25 % 11/18/19 04:56 Glucose 164 mg/dL (65-100) H 11/18/19 04:56 POC Glucose 121 (70-105) H 11/20/19 08:06 Lactic Acid 1.80 mmol/L (0.7-2.0) 11/17/19 09:48 Calcium 8.1 mg/dL (8.4-10.2) L 11/18/19 04:56 Magnesium 1.70 mg/dL (1.7-2.3) 11/18/19 04:56 Total Bilirubin 6.40 mg/dL (0.1-1.2) H 11/18/19 04:56 AST 134 units/L (5-40) H 11/18/19 04:56 ALT 238 units/L (7-56) H 11/18/19 04:56 Alkaline Phosphatase 161 units/L (35-129) H 11/18/19 04:56 Ammonia 14.0 umol/L (25-60) L 11/17/19 09:45 Total Creatine Kinase 28 units/L (30-135) L 11/17/19 09:45 CK-MB (CK-2) < 1.0 ng/mL (0.0-4.0) 11/17/19 09:45 CK-MB (CK-2) Rel Index 3.5 (0-4) 11/17/19 09:45 Troponin T < 0.010 ng/mL (0.00-0.029) 11/17/19 09:45 C-Reactive Protein 9.90 mg/dL (0.00-1.30) H 11/18/19 16:29 NT-Pro-B Natriuret Pep 64.99 pg/mL (0-450) 11/17/19 09:45 Total Protein 6.7 g/dL (6.3-8.2) 11/18/19 04:56 Albumin 3.2 g/dL (3.9-5) L 11/18/19 04:56 Albumin/Globulin Ratio 0.9 % 11/18/19 04:56 Lipase 19 units/L (13-60) 11/17/19 09:12 Procalcitonin 0.18 ng/mL (<0.15) 11/18/19 16:29 HCG, Qual Negative (Negative) 11/17/19 11:21 Urine Color Yeimi (Yellow) 11/17/19 Unknown Urine Turbidity Clear (Clear) 11/17/19 Unknown Urine pH 5.0 (5.0-7.0) 11/17/19 Unknown Ur Specific [place] 1.018 (1.003-1.030) 11/17/19 Unknown Urine Protein 30 mg/dl mg/dL (Negative) 11/17/19 Unknown Urine Glucose (UA) Neg mg/dL (Negative) 11/17/19 Unknown Urine Ketones 20 mg/dL (Negative) 11/17/19 Unknown Urine Blood Neg (Negative) 11/17/19 Unknown Urine Nitrite Neg (Negative) 11/17/19 Unknown Urine Bilirubin Sm (Negative) 11/17/19 Unknown Urine Ictotest Negative (Negative) 11/17/19 Unknown Urine Urobilinogen 4.0 mg/dL (<2.0) 11/17/19 Unknown Ur Leukocyte Esterase Sm (Negative) 11/17/19 Unknown Urine WBC (Auto) 68.0 /HPF (0.0-6.0) H 11/17/19 Unknown Urine RBC (Auto) 3.0 /HPF (0.0-6.0) 11/17/19 Unknown U Epithel Cells (Auto) 4.0 /HPF (0-13.0) 11/17/19 Unknown Urine Bacteria (Auto) 1+ /HPF (Negative) 11/17/19 Unknown Urine Mucus 2+ /HPF 11/17/19 Unknown Nasal Screen MRSA (PCR) Positive (Negative) 11/17/19 22:00 Blood Type O POSITIVE 11/17/19 09:45 Antibody Screen Positive 11/17/19 09:45 Crossmatch See Detail 11/17/19 09:45 Microbiology: Microbiology 11/17/19 09:45 Peripheral/Venous Blood Culture - Preliminary NO GROWTH AFTER 72 HOURS 11/17/19 09:45 Peripheral/Venous Blood Culture - Preliminary NO GROWTH AFTER 72 HOURS Law/IV: Voiding Method Toilet IV Catheter Type [Right Upper Peripheral IV arm] IV Catheter Type [Right Hand] INT / Saline Lock IV Catheter Type [Left INT / Saline Lock Antecubital] Active Medications - Current Medications Current Medications: Generic Name Dose Route Start Last Admin Trade Name Freq PRN Reason Stop Dose Admin Acetaminophen 650 mg 11/17/19 16:09 Tylenol PO Q4H PRN Pain MILD(1-3)/Fever >100.5/BECKER Cefepime HCl 1 gm in 100 mls @ 200 mls/hr 11/17/19 18:00 11/20/19 10:30 Cefepime/Ns 1 Gm/100 Ml IV 200 mls/hr Q8H YUNIER Administration Protocol Losartan Potassium 50 mg 11/19/19 10:00 11/20/19 10:34 Cozaar PO 50 mg QDAY YUNIER Administration Metformin HCl 500 mg 11/19/19 10:00 11/20/19 08:12 Glucophage PO 500 mg BIDDIAB YUNIER Administration Miscellaneous Medication 1 each 11/19/19 10:00 Norgestrel-Ethinyl Estradiol [[id number] Tablet] PO DAILY [facility] Miscellaneous Medication 3 mg 11/19/19 10:00 Budesonide [Budesonide Ec] PO QAM [facility] Morphine Sulfate 2 mg 11/17/19 12:42 11/20/19 05:42 Morphine IV 2 mg Q3H PRN Administration Pain, Moderate (4-6) Morphine Sulfate 4 mg 11/17/19 16:09 11/18/19 02:59 Morphine IV 4 mg Q4H PRN Administration Pain , Severe (7-10) Multivitamins/Iron 1 each 11/20/19 11:00 Hemocyte Plus PO QDAY [facility] Ondansetron HCl 4 mg 11/17/19 16:09 11/19/19 22:20 Zofran IV 4 mg Q8H PRN Administration Nausea And Vomiting Pantoprazole Sodium 40 mg 11/19/19 10:00 11/20/19 10:33 Protonix PO 40 mg QDAY YUNIER Administration Sodium Chloride 10 ml 11/17/19 22:00 11/19/19 22:21 Sodium Chloride Flush Syringe 10 Ml IV 10 ml BID YUNIER Administration Sodium Chloride 10 ml 11/17/19 16:09 Sodium Chloride Flush Syringe 10 Ml IV PRN PRN LINE FLUSH Ursodiol 500 mg 11/19/19 10:00 11/20/19 10:31 Ursodiol PO 500 mg BID YUNIER Administration Zolpidem Tartrate 5 mg 11/17/19 22:32 11/19/19 00:34 Ambien PO 5 mg QHS PRN Administration Sleep
[2019-11-20 12:17] LABS: Mean Corpuscular HGB Conc 34 % (30-34); Mean Corpuscular Volume 106 fl (79-97); Platelet Count 335 K/mm3 (140-440); Red Blood Count 1.45 M/mm3 (3.65-5.03)
[2019-11-20 12:24] LABS: Hematocrit 15.4 % (30.3-42.9); Hemoglobin 5.1 gm/dl (10.1-14.3); Red Cell Distribution Width 27.4 % (13.2-15.2)
[2019-11-20] MEDS: FE FUMARATE/FA/MV, MIN COMB#15 CAP (HEMOCYTE PLUS) PO SCH (12:32)
[2019-11-20] MEDS ORDERED: EPOETIN ALFA 20,000 UNIT/1 ML INJ SUB-Q ONE (13:00)
[2019-11-20 13:36] LABS: Iron 114 ug/dL (37-170); Total Iron Binding Capacity 276 mcg/dL (250-450)
[2019-11-20] MEDS ORDERED: EPOETIN ALFA 10,000 UNIT/1 ML INJ SUB-Q ONE (14:00)
[2019-11-20] MEDS ORDERED: POLYETHYLENE GLYCOL 3350 17 GM POWDER PO PRN (22:31)
[2019-11-21] MEDS: MORPHINE 2 MG/1 ML INJ IV PRN (01:17)
[2019-11-21] MEDS: CEFEPIME/NS 1 GM/100 ML 1 GM/100 ML BAG IV SCH ×2 (01:18→09:52)
[2019-11-21] MEDS: ONDANSETRON 4 MG/2 ML INJ IV PRN ×2 (01:19→08:35)
[2019-11-21 05:53] VITALS: BP 129/65
[2019-11-21 06:52] LABS: Hematocrit 23.4 % (30.3-42.9); Hemoglobin 7.8 gm/dl (10.1-14.3)
--- NOTE | 2019-11-21 08:18 | Discharge Summary ---
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 She has a complicated medical history, follows with GI Physician. . She was scheduled for MRI Abdomen to evaluate abdominal stent. However she presented to ED with abdominal pain, generalized weakness,fatigue,dizziness for few days. Abdominal pain is right upper quadrant 8/10, with no radiation. She denied fever or chills. She denied blood in stools, no dark stools. Review of her previous medical record is indicative of sphincterotomy for biliary obstruction here in August. She is poor historian cannot give details, but did say she saw GI Physician few days ago. She was seen and evaluated in ED. She has jaundice. Labs showed Total bilirubin 7.1 , anemia with hemoglobin 6.9. She was admitted, evaluated by GI and Id Physician. Hgb went down to 5.1 blood transfusion was ordered but there was a delay in getting blood from [place] so was given Iron infusion while awaiting. Eventually transfused 2 Units PRBC bringing hgb up to 7.8 and she was discharged home. GI Physician did not recommend antibiotic on discharge. Patient does not have active pancreatitis this admission. Obstructive Jaundice Admitted to medical floor GI consulted, was following Anemia due to chronic disease Hgb as low as 5.1. Transfused 2 Units PRBC and given iron infusion while awaiting blood Primary sclerosing cholangitis History of biliary stent Cysto-gastrostomy stent Follows with GI Hyperbilirubinemia GI was following Low grade fever 99.9 Started on cefepime in ED Cont Cefepime consulted ID, she was seen by Dr. Hilton Autoimmune hepatitis Follows as outpatient 11/19/19 Patient with severe anemia, jaundice. Blood still not available yet. Hopefully transfuse blood today. To dc home after blood given. 11/20/19 Patient with severe anemia. Given Iron iv yesterday. Hgb repeat 5.1. Dr. Pina recommended Epogen, dose ordered. Blood still not available yet. Total time spent on discharge, 38 mins Disposition: -01 TO HOME OR SELFCARE Core Measure Documentation - Palliative Care Palliative Care/ Comfort Measures: Not Applicable - Core Measures Any of the following diagnoses?: none Exam - Constitutional Vitals: Temp Pulse Resp BP Pulse Ox 99.2 F 99 H 16 129/65 96 11/21/19 05:06 11/21/19 05:06 11/21/19 05:06 11/21/19 05:06 11/21/19 05:06 Plan Activity: no restrictions Diet: low fat, low cholesterol, low salt, diabetic Additional Instructions: 1.Follow up with Dr. Pina in 1 week Plan of Treatment: 1.Follow up with Dr. Pina in 1 week Follow up with: PRIMARY CARE, [Primary Care Provider] - 3-5 Days
[2019-11-21] MEDS: metFORMIN 500 MG TAB PO SCH (08:35)
[2019-11-21] MEDS: FE FUMARATE/FA/MV, MIN COMB#15 CAP (HEMOCYTE PLUS) PO SCH (09:52)
[2019-11-21] MEDS: LOSARTAN 50 MG TAB PO SCH (09:52)
[2019-11-21] MEDS: URSODIOL 250 MG TAB PO SCH (09:52)
[2019-11-21] MEDS: PANTOPRAZOLE 40 MG TAB PO SCH (09:52)
[2019-11-21] MEDS ORDERED: DOCUSATE SODIUM 100 MG CAP PO SCH (10:00)
== END 2019-11-21 12:58 | disposition home or self-care (01) | DRG 445 ==
LOC: ED 08:50 → IMCU 11:28
PROVIDERS: ADMIT Internal Medicine; ATTEND Internal Medicine
PROC: 30233N1 Transfusion of Nonautologous Red Blood Cells into Peripheral Vein, Percutaneous Approach (ICD-10-PCS; principal; 2019-11-20)
DX: K83.1 Obstruction of bile duct (principal); K83.01 Primary sclerosing cholangitis; D62 Acute posthemorrhagic anemia; R65.10 Systemic inflammatory response syndrome (SIRS) of non-infectious origin without acute organ dysfunction; N39.0 Urinary tract infection, site not specified; K86.3 Pseudocyst of pancreas; I10 Essential (primary) hypertension; E66.01 Morbid (severe) obesity due to excess calories; E11.9 Type 2 diabetes mellitus without complications; K75.4 Autoimmune hepatitis; D63.8 Anemia in other chronic diseases classified elsewhere; Z90.49 Acquired absence of other specified parts of digestive tract; Z68.34 Body mass index [BMI] 34.0-34.9, adult; Z82.49 Family history of ischemic heart disease and other diseases of the circulatory system; Z79.4 Long term (current) use of insulin
CPT/HCPCS: 36415; 71045; 80053; 81001; 82140; 82550; 82553; 82607; 82747; 82962; 83550; 83690; 83735; 83880; 84145; 84484; 84703; 85007; 85014; 85018; 85025; 85027; 85610; 85730; 86140; 86850; 86870; 86900; 86901; 86920; 87040; 87086; 87116; 87641; 93005; G0378; C9113; J0692; J0885; J2270; J2405; J2916; J3475; J7030; J7040; P9016